=== PATIENT | male | born 1965 | race Caucasian/White ===

== ENCOUNTER 2018-11-17 18:57 | Inpatient (IN) ==
[2018-11-17] MEDS ORDERED: Isovue-370 500 ML BOTTLE IVP ONE (19:26)
--- NOTE | 2018-11-17 19:26 | Emergency Department Note ---
Disposition Clinical Impression: Hemoptysis Lung cancer Qualifiers: Laterality: right Lung location: upper lobe of lung Qualified Code(s): C34.11 - Malignant neoplasm of upper lobe, right bronchus or lung Pneumonia Qualifiers: Pneumonia type: due to unspecified organism Laterality: right Lung location: unspecified part of lung Qualified Code(s): J18.9 - Pneumonia, unspecified organism Disposition: Admitted As Inpatient Condition: Fair Referrals: Viral Hoffman DO [Primary Care Provider] - Forms: ED Satisfaction Letter Time of Disposition: 22:05 General Adult HPI - General Chief complaint: ED Shortness of Breath/Dyspnea Stated complaint: coughing up blood CA PT Time Seen by Provider: 11/17/18 19:10 Nursing Notes Reviewed: Yes Vital Signs Reviewed: Yes (elevated temp 100.2F, tachycardic) - History of Present Illness HPI Narrative: Mr. Carmona is a 53 year old male with history of squamous cell lung cancer of RUL dx 01/2016 and currently on chemotherpay with [facility] on Gemcitabine, COPD, former smoker, mairjuana smoker, migraines, and neuropathy who presents to the ED with complaint of coughing up bright red blood and clots that worsened since this morning. Patient reports that this has started about 2 days ago. Patient does reports some increased shortness of breath with these episodes as well as some lightheadedness. Reports in last few days had a blood transfusion for anemia, Hb 7.1 11/05/15 and transfused 2 Units pRBC. Fever to 103.8 last evening. Patient does report chills, sweats, and chest pain worse on the right side, but this is not new over the last few days and has been ongoing for several months or more. Is using marijuana for nausea. Reports not on blood thinners. Denies reported headaches, changes in vision or hearing, vomiting, abdominal pain, changes in bowels or bladder, blood in urine, blood in stools, weakness, new loss of sensation, or rash. Pain Scale: 8 - Related Data Home Medications Medication Instructions Recorded Confirmed Albuterol Sulfate [Proair 90 mcg IH BID PRN 05/14/16 11/04/18 Respiclick] Fluticasone/Vilanterol [Breo 1 each IH DAILY 09/10/18 11/04/18 Ellipta 100-25 Mcg INH] Fluticasone/Umeclidin/Vilanter 1 each IH DAILY 11/17/18 11/17/18 [Trelegy Ellipta 100-62.5-25] Previous Rx's Medication Instructions Recorded Lidocaine/Prilocaine [Emla] 1 appl TP DAILY #30 gm 01/21/18 Promethazine [Phenergan] 25 mg PO Q6HR PRN #30 tablet 01/21/18 LORazepam [Ativan] 0.5 mg PO BID PRN 30 Days #60 07/12/18 tablet Omeprazole [PriLOSEC] 40 mg PO DAILY #30 cap 08/09/18 Gabapentin [Neurontin] 800 mg PO TID #90 tablet 09/10/18 Mirtazapine [Remeron] 30 mg PO HS 30 Days #30 tablet 09/10/18 Citalopram [CeleXA] 10 mg PO DAILY #30 tablet 10/21/18 Morphine Sulfate SR (12 HR) [MS 1 tab PO Q12HR 30 Days #60 tab 10/28/18 Contin] OxyCODONE/APAP 5/325 [Percocet 1 - 2 tab PO Q6H PRN 30 Days #180 10/28/18 5/325 MG] tablet Allergies Allergy/AdvReac Type Severity Reaction Status Date / Time No Known Allergies Allergy Verified 11/17/18 18:59 Review of Systems: As Per HPI Past Medical History - Past Medical History Source: patient, old records reviewed Medical history: Reports: cancer (small cell lung cancer), COPD, migraine, other Surgical history: Reports: orthopedic, other, other Psychiatric history: Reports: no psych history - Social History Smoking Status: Former smoker Smokeless Tobacco Status: No Alcohol use: Reports: none Drug use: Reports: none Physical Exam - General General appearance: alert, in no apparent distress, cachectic, other (pale appearance) - Head Head exam: atraumatic, normocephalic, normal inspection - Eye Eye exam: Present: normal appearance - ENT ENT exam: normal exam, normal oropharynx, mucous membranes moist, other (lips with multiple red macules) - Neck Neck exam: Present: normal inspection, full ROM, trachea midline. Absent: tenderness, lymphadenopathy - Chest Chest inspection: Present: normal inspection, symmetric chest wall rise, other (port left upper chest) - Respiratory Respiratory exam: Present: normal lung sounds bilaterally. Absent: respiratory distress, wheezes, accessory muscle use - Cardiovascular Cardiovascular exam: Present: normal rhythm, tachycardia, normal heart sounds - Abdominal Exam Abdominal exam: Present: soft, Non-Tender, normal bowel sounds. Absent: guarding, rigidity - Extremities Exam Extremities exam: Present: normal inspection, full ROM, normal capillary refill. Absent: tenderness, pedal edema - Back Exam Back exam: Present: normal inspection, full ROM. Absent: tenderness, CVA tenderness (R), CVA tenderness (L) - Neurological Exam Neurological exam: Present: alert, oriented X3, normal gait, reflexes normal - Psychiatric Psychiatric exam: Present: normal affect, normal mood - Skin Skin exam: Present: warm, dry, intact, normal color. Absent: rash, diaphoresis, erythema Course Vital Signs Temperature 100.2 F H 11/17/18 18:59 Pulse Rate 108 11/17/18 18:59 Respiratory Rate 22 11/17/18 18:59 Blood Pressure 106/66 11/17/18 18:59 O2 Sat by Pulse Oximetry 91 11/17/18 18:59 Temperature 100.2 F H 11/17/18 19:22 Pulse Rate 94 11/17/18 20:51 Respiratory Rate 18 11/17/18 20:51 Blood Pressure 98/66 11/17/18 20:51 O2 Sat by Pulse Oximetry 89 11/17/18 20:51 Oxygen Delivery Oxygen Delivery Room Air Medical Decision Making - [facility] Narrative Medical decision making narrative: 53 year old male with known small cell lung cancer on chemotherapy with 3 day history of hemoptysis and worse over last 24 hours with some increased shortness of breath and lightheadedness and no constitutional symptoms, but has elevated temp of 100.2F and tachycardic on arrival. Ddx including but not limited to erosion secondary to lung cancer, pneumonia,PE, copd exacerbation. Will obtain CTA of chest for evaluation, last Cr completed 11/11/18 and was normal, contacted radiology okay to get CT at this time. Will also order additional labs including blood cultures and lactic acid for consideration of possible early forming sepsis given patient is immunocompomised on chemotherapy. Labs returned back without leukocytosis, essentially normal platelets, mildly low sodium and potassium, and normal urine. Blood cultures pending. Due to fevers of unknown source in imunocompromised patient, will start vancomycin and zosyn. Admit for observation and additional workup. Discussed with patient who is reluctant to be admitted. Requesting some of his home pain medications, confirmed in outpatient records from cancer center. Ordered 2 tablets 5/325 percocet. Repaged admitter and radiology 21:15p. CTA revealed increasing cavitation and/or necross in the opacified area of the right hemithorax and increaseing interstital prominence and multifocal airspace disease in periphery of right lung concerning for pnuemonia or lymphangitc s pread. Spoke with hospitalist 21:35pm, recommend contact Oncology and page back to discuss case further. Spoke with Oncology 22:00pm who recommended admission for pneumonia and treatment for and observation. Spoke with Hospitalist again 22:04, admit, start some fluids. 1.5L fluids ordered. - Medical Records Medical records reviewed: Yes I reviewed the patient's medical records. [email or web address]. - Lab Data Lab results reviewed: Yes I reviewed the patient's lab results. Lab results narrative: Hb low at 7.8 but acceptable, lactic acid normal, WBC 7.1, urine normal, sodium 128, platelets 191. Laboratory Last Values WBC 7.1 K/mcL (4.3-11.1) D 11/17/18 19:31 RBC 3.04 M/mcL (4.19-5.50) L 11/17/18 19:31 Hgb 7.8 g/dL (12.9-16.9) L 11/17/18 19:31 Hct 25.1 % (37.5-50.1) L 11/17/18 19:31 MCV 82.6 fL (83.0-100.0) L 11/17/18 19:31 MCH 25.7 pg (28.0-33.3) L 11/17/18 19:31 MCHC 31.1 g/dL (31.6-35.5) L 11/17/18 19:31 RDW 18.3 % (11.5-14.5) H 11/17/18 19:31 Plt Count 191 K/mcL (140-400) D 11/17/18 19:31 MPV 9.7 fL (9.4-12.4) 11/17/18 19:31 Sodium 128 mEq/L (136-145) L 11/17/18 19:31 Potassium 3.3 mEq/L (3.5-5.1) L 11/17/18 19:31 Chloride 93 mEq/L (98-107) L 11/17/18 19:31 Carbon Dioxide 25 mEq/L (23-29) 11/17/18 19:31 BUN 8 mg/dL (6-20) 11/17/18 19:31 0.83 mg/dL (0.70-1.30) 11/17/18 19:31 Est GFR ( Amer) > 60 (> 60) 11/17/18 19:31 Est GFR (Non-Af Amer) > 60 (> 60) 11/17/18 19:31 10 (6-26) 11/17/18 19:31 Glucose 118 mg/dL (70-105) H 11/17/18 19:31 265 (280-300) L 11/17/18 19:31 Lactic Acid 0.9 mmol/L (0.5-2.2) 11/17/18 19:31 Calcium 8.9 mg/dL (8.6-10.3) 11/17/18 19:31 Yellow (Yellow) 11/17/18 20:13 Clear (Clear) 11/17/18 20:13 7.0 pH Units (5.0-8.0) 11/17/18 20:13 Ur Specific [place] < 1.005 (1.010-1.025) L 11/17/18 20:13 Negative mg/dL (Neg-Trace) 11/17/18 20:13 Normal mg/dL (Normal) 11/17/18 20:13 Negative mg/dL (Negative) 11/17/18 20:13 Trace (Negative) H 11/17/18 20:13 Negative (Negative) 11/17/18 20:13 Negative (Negative) 11/17/18 20:13 Normal mg/dL (Normal) 11/17/18 20:13 Ur Leukocyte Esterase Negative (Negative) 11/17/18 20:13 Result diagrams: 11/17/18 19:31 11/17/18 19:31 Lab Results 11/17/18 11/17/18 11/17/18 Range/Units 19:31 19:31 19:31 WBC 7.1 D (4.3-11.1) K/mcL RBC 3.04 L (4.19-5.50) M/mcL Hgb 7.8 L (12.9-16.9) g/dL Hct 25.1 L (37.5-50.1) % MCV 82.6 L (83.0-100.0) fL MCH 25.7 L (28.0-33.3) pg MCHC 31.1 L (31.6-35.5) g/dL RDW 18.3 H (11.5-14.5) % Plt Count 191 D (140-400) K/mcL MPV 9.7 (9.4-12.4) fL Sodium 128 L (136-145) mEq/L Potassium 3.3 L (3.5-5.1) mEq/L Chloride 93 L (98-107) mEq/L Carbon Dioxide 25 (23-29) mEq/L BUN 8 (6-20) mg/dL Creatinine 0.83 (0.70-1.30) mg/dL Est GFR ( Amer) > 60 (> 60) Est GFR (Non-Af Amer) > 60 (> 60) BUN/Creatinine Ratio 10 (6-26) Glucose 118 H (70-105) mg/dL Calculated Osmolality 265 L (280-300) Lactic Acid 0.9 (0.5-2.2) mmol/L Calcium 8.9 (8.6-10.3) mg/dL Urine Color (Yellow) Urine Clarity (Clear) Urine pH (5.0-8.0) pH Units Ur Specific [place] (1.010-1.025) Urine Protein (Neg-Trace) mg/dL Urine Glucose (UA) (Normal) mg/dL Urine Ketones (Negative) mg/dL Urine Blood (Negative) Urine Nitrite (Negative) Urine Bilirubin (Negative) Urine Urobilinogen (Normal) mg/dL Ur Leukocyte Esterase (Negative) Ur Squamous Epith Cells (None-Few) per lpf Urine Bacteria (None-Few) per hpf Blood Type Antibody Screen 11/17/18 11/17/18 Range/Units 20:04 20:13 WBC (4.3-11.1) K/mcL RBC (4.19-5.50) M/mcL Hgb (12.9-16.9) g/dL Hct (37.5-50.1) % MCV (83.0-100.0) fL MCH (28.0-33.3) pg MCHC (31.6-35.5) g/dL RDW (11.5-14.5) % Plt Count (140-400) K/mcL MPV (9.4-12.4) fL Sodium (136-145) mEq/L Potassium (3.5-5.1) mEq/L Chloride (98-107) mEq/L Carbon Dioxide (23-29) mEq/L BUN (6-20) mg/dL Creatinine (0.70-1.30) mg/dL Est GFR ( Amer) (> 60) Est GFR (Non-Af Amer) (> 60) BUN/Creatinine Ratio (6-26) Glucose (70-105) mg/dL Calculated Osmolality (280-300) Lactic Acid (0.5-2.2) mmol/L Calcium (8.6-10.3) mg/dL Urine Color Yellow (Yellow) Urine Clarity Clear (Clear) Urine pH 7.0 (5.0-8.0) pH Units Ur Specific [place] < 1.005 L (1.010-1.025) Urine Protein Negative (Neg-Trace) mg/dL Urine Glucose (UA) Normal (Normal) mg/dL Urine Ketones Negative (Negative) mg/dL Urine Blood Trace H (Negative) Urine Nitrite Negative (Negative) Urine Bilirubin Negative (Negative) Urine Urobilinogen Normal (Normal) mg/dL Ur Leukocyte Esterase Negative (Negative) Ur Squamous Epith Cells Few (None-Few) per lpf Urine Bacteria None Seen (None-Few) per hpf Blood Type AB NEGATIVE Antibody Screen NEGATIVE - Radiology Data Radiology results reviewed: Yes I reviewed the patient's radiology results. Chest CTA 11/17/18 19:26 IMPRESSION: There no findings diagnostic of pulmonary embolus There is a large amount of abnormal opacification in the right hemithorax extending from the apex to the infrahilar region. There is increasing cavitation and/or necrosis in this opacification and there is also increasing interstitial prominence and multifocal airspace disease in the periphery of the right lung. This is nonspecific and may represent pneumonia or even lymphangitic tumor spread. Multifocal ground-glass attenuation in the left hemithorax is improved. D/ / Sarkis Bradford / Sarkis Bradford Interpreting Provider: Sarkis Bradford
[2018-11-17 19:43] LABS: Hematocrit 25.1 % (37.5-50.1); Hemoglobin 7.8 g/dL (12.9-16.9); Mean Corpuscular HGB Conc 31.1 g/dL (31.6-35.5); Mean Corpuscular Hemoglobin 25.7 pg (28.0-33.3); Mean Corpuscular Volume 82.6 fL (83.0-100.0); Mean Platelet Volume 9.7 fL (9.4-12.4); Platelet Count 191 K/mcL (140-400); Red Blood Count 3.04 M/mcL (4.19-5.50); Red Cell Distribution Width 18.3 % (11.5-14.5)
--- NOTE | 2018-11-17 19:49 | Emergency Department Note ---
Disposition Clinical Impression: Hemoptysis Lung cancer Qualifiers: Laterality: right Lung location: upper lobe of lung Qualified Code(s): C34.11 - Malignant neoplasm of upper lobe, right bronchus or lung Pneumonia Qualifiers: Pneumonia type: due to unspecified organism Laterality: right Lung location: unspecified part of lung Qualified Code(s): J18.9 - Pneumonia, unspecified organism Anemia Qualifiers: Anemia type: unspecified type Qualified Code(s): D64.9 - Anemia, unspecified Disposition: Admitted As Inpatient Condition: Fair Time of Disposition: 00:00 (see actual ED d/c time) General Adult HPI - General Chief complaint: ED Shortness of Breath/Dyspnea Stated complaint: coughing up blood CA PT Time Seen by Provider: 11/17/18 19:10 Source: patient Limitations: no limitations - History of Present Illness Pain Scale: 8 - Related Data Home Medications Medication Instructions Recorded Confirmed Albuterol Sulfate [Proair 90 mcg IH BID PRN 05/14/16 11/04/18 Respiclick] Fluticasone/Vilanterol [Breo 1 each IH DAILY 09/10/18 11/17/18 Ellipta 100-25 Mcg INH] Fluticasone/Umeclidin/Vilanter 1 each IH DAILY 11/17/18 11/17/18 [Trelegy Ellipta 100-62.5-25] Previous Rx's Medication Instructions Recorded Lidocaine/Prilocaine [Emla] 1 appl TP DAILY #30 gm 01/21/18 Promethazine [Phenergan] 25 mg PO Q6HR PRN #30 tablet 01/21/18 LORazepam [Ativan] 0.5 mg PO BID PRN 30 Days #60 07/12/18 tablet Omeprazole [PriLOSEC] 40 mg PO DAILY #30 cap 08/09/18 Gabapentin [Neurontin] 800 mg PO TID #90 tablet 09/10/18 Mirtazapine [Remeron] 30 mg PO HS 30 Days #30 tablet 09/10/18 Citalopram [CeleXA] 10 mg PO DAILY #30 tablet 10/21/18 Morphine Sulfate SR (12 HR) [MS 1 tab PO Q12HR 30 Days #60 tab 10/28/18 Contin] OxyCODONE/APAP 5/325 [Percocet 1 - 2 tab PO Q6H PRN 30 Days #180 10/28/18 5/325 MG] tablet Allergies Allergy/AdvReac Type Severity Reaction Status Date / Time No Known Allergies Allergy Verified 11/17/18 18:59 Past Medical History - Past Medical History Medical history: Reports: cancer (small cell lung cancer), COPD, migraine, other Surgical history: Reports: orthopedic, other, other Psychiatric history: Reports: no psych history - Social History Smoking Status: Former smoker Smokeless Tobacco Status: No Alcohol use: Reports: none Drug use: Reports: marijuana Physical Exam - General Limitations: no limitations General appearance: alert, in no apparent distress, cachectic Course Vital Signs Temperature 100.2 F H 11/17/18 18:59 Pulse Rate 108 11/17/18 18:59 Respiratory Rate 22 11/17/18 18:59 Blood Pressure 106/66 11/17/18 18:59 O2 Sat by Pulse Oximetry 91 11/17/18 18:59 Temperature 93 F L 11/18/18 09:00 Pulse Rate 88 11/18/18 09:00 Respiratory Rate 18 11/18/18 09:00 Blood Pressure 101/69 11/18/18 09:00 O2 Sat by Pulse Oximetry 93 11/18/18 09:00 Oxygen Delivery Oxygen Delivery Nasal Cannula Medical Decision Making - Medical Records Medical records reviewed: Yes I reviewed the patient's medical records. - Lab Data Lab results reviewed: Yes I reviewed the patient's lab results. Result diagrams: 11/18/18 01:24 11/17/18 19:31 Lab Results 11/17/18 11/17/18 11/17/18 Range/Units 19:31 19:31 19:31 WBC 7.1 D (4.3-11.1) K/mcL RBC 3.04 L (4.19-5.50) M/mcL Hgb 7.8 L (12.9-16.9) g/dL Hct 25.1 L (37.5-50.1) % MCV 82.6 L (83.0-100.0) fL MCH 25.7 L (28.0-33.3) pg MCHC 31.1 L (31.6-35.5) g/dL RDW 18.3 H (11.5-14.5) % Plt Count 191 D (140-400) K/mcL MPV 9.7 (9.4-12.4) fL Sodium 128 L (136-145) mEq/L Potassium 3.3 L (3.5-5.1) mEq/L Chloride 93 L (98-107) mEq/L Carbon Dioxide 25 (23-29) mEq/L BUN 8 (6-20) mg/dL Creatinine 0.83 (0.70-1.30) mg/dL Est GFR ( Amer) > 60 (> 60) Est GFR (Non-Af Amer) > 60 (> 60) BUN/Creatinine Ratio 10 (6-26) Glucose 118 H (70-105) mg/dL POC Glucose (70-99) mg/dL Calculated Osmolality 265 L (280-300) Lactic Acid 0.9 (0.5-2.2) mmol/L Calcium 8.9 (8.6-10.3) mg/dL Urine Color (Yellow) Urine Clarity (Clear) Urine pH (5.0-8.0) pH Units Ur Specific [place] (1.010-1.025) Urine Protein (Neg-Trace) mg/dL Urine Glucose (UA) (Normal) mg/dL Urine Ketones (Negative) mg/dL Urine Blood (Negative) Urine Nitrite (Negative) Urine Bilirubin (Negative) Urine Urobilinogen (Normal) mg/dL Ur Leukocyte Esterase (Negative) Ur Squamous Epith Cells (None-Few) per lpf Urine Bacteria (None-Few) per hpf Urine Osmolality (300-1090) mOsm/kg Urine Creatinine mg/dL Urine Sodium mEq/L Blood Type Antibody Screen Crossmatch 11/17/18 11/17/18 11/17/18 Range/Units 20:04 20:13 20:13 WBC (4.3-11.1) K/mcL RBC (4.19-5.50) M/mcL Hgb (12.9-16.9) g/dL Hct (37.5-50.1) % MCV (83.0-100.0) fL MCH (28.0-33.3) pg MCHC (31.6-35.5) g/dL RDW (11.5-14.5) % Plt Count (140-400) K/mcL MPV (9.4-12.4) fL Sodium (136-145) mEq/L Potassium (3.5-5.1) mEq/L Chloride (98-107) mEq/L Carbon Dioxide (23-29) mEq/L BUN (6-20) mg/dL Creatinine (0.70-1.30) mg/dL Est GFR ( Amer) (> 60) Est GFR (Non-Af Amer) (> 60) BUN/Creatinine Ratio (6-26) Glucose (70-105) mg/dL POC Glucose (70-99) mg/dL Calculated Osmolality (280-300) Lactic Acid (0.5-2.2) mmol/L Calcium (8.6-10.3) mg/dL Urine Color Yellow (Yellow) Urine Clarity Clear (Clear) Urine pH 7.0 (5.0-8.0) pH Units Ur Specific [place] < 1.005 L (1.010-1.025) Urine Protein Negative (Neg-Trace) mg/dL Urine Glucose (UA) Normal (Normal) mg/dL Urine Ketones Negative (Negative) mg/dL Urine Blood Trace H (Negative) Urine Nitrite Negative (Negative) Urine Bilirubin Negative (Negative) Urine Urobilinogen Normal (Normal) mg/dL Ur Leukocyte Esterase Negative (Negative) Ur Squamous Epith Cells Few (None-Few) per lpf Urine Bacteria None Seen (None-Few) per hpf Urine Osmolality (300-1090) mOsm/kg Urine Creatinine 19 mg/dL Urine Sodium 10.4 mEq/L Blood Type AB NEGATIVE Antibody Screen NEGATIVE Crossmatch See Detail 11/17/18 11/17/18 11/18/18 Range/Units 20:13 23:52 01:24 WBC (4.3-11.1) K/mcL RBC (4.19-5.50) M/mcL Hgb 7.3 L (12.9-16.9) g/dL Hct 24.3 L (37.5-50.1) % MCV (83.0-100.0) fL MCH (28.0-33.3) pg MCHC (31.6-35.5) g/dL RDW (11.5-14.5) % Plt Count (140-400) K/mcL MPV (9.4-12.4) fL Sodium (136-145) mEq/L Potassium (3.5-5.1) mEq/L Chloride (98-107) mEq/L Carbon Dioxide (23-29) mEq/L BUN (6-20) mg/dL Creatinine (0.70-1.30) mg/dL Est GFR ( Amer) (> 60) Est GFR (Non-Af Amer) (> 60) BUN/Creatinine Ratio (6-26) Glucose (70-105) mg/dL POC Glucose 115 H (70-99) mg/dL Calculated Osmolality (280-300) Lactic Acid (0.5-2.2) mmol/L Calcium (8.6-10.3) mg/dL Urine Color (Yellow) Urine Clarity (Clear) Urine pH (5.0-8.0) pH Units Ur Specific [place] (1.010-1.025) Urine Protein (Neg-Trace) mg/dL Urine Glucose (UA) (Normal) mg/dL Urine Ketones (Negative) mg/dL Urine Blood (Negative) Urine Nitrite (Negative) Urine Bilirubin (Negative) Urine Urobilinogen (Normal) mg/dL Ur Leukocyte Esterase (Negative) Ur Squamous Epith Cells (None-Few) per lpf Urine Bacteria (None-Few) per hpf Urine Osmolality 57 L (300-1090) mOsm/kg Urine Creatinine mg/dL Urine Sodium mEq/L Blood Type Antibody Screen Crossmatch - Radiology Data Radiology results reviewed: Yes I reviewed the patient's radiology results. Attestation Statement - Attestation Attestation: I examined this patient and my medical decision-making was reviewed with the ACTIVATED SLUDGE ATTENDANT/PA/Advanced Practice Nurse/Resident Physician. I agree with the documented findings, disposition and treatment plan as described except to the extent set forth below. The patient is on chemotherapy for lung cancer and was last treated 2 weeks ago and is here with his fiancee as well as his son and [id number] and according to the [id number] he is also had blood in the stool. He said he has only had several days of hemoptysis although the daughter said he has been spitting up blood for several weeks. Either way the patient is being evaluated for possible sepsis because he did have a temperature 103.8 degrees last night and in addition he is also going to have lactate level, blood cultures, urine culture, chest CT with contrast looking for PE versus pneumonia or other source of his hemoptysis. He has not coughed up any blood since he has been here. He will have a type and screen added to his labs based on this other information about blood loss and he is also recently transfused. He is speaking with me in the room and breathing comfortably and in no distress at this time. 1946
[2018-11-17 20:02] LABS: BUN/Creatinine Ratio 10 (6-26); Blood Urea Nitrogen 8 mg/dL (6-20); Calcium 8.9 mg/dL (8.6-10.3); Carbon Dioxide 25 mEq/L (23-29); Chloride 93 mEq/L (98-107); Glucose 118 mg/dL (70-105); Osmolality,Calculated 265 (280-300); Potassium 3.3 mEq/L (3.5-5.1); Sodium 128 mEq/L (136-145); eGFR For Non-African Americans > 60 (> 60)
[2018-11-17 20:30] LABS: Bilirubin,Urine Negative (Negative); Blood,Urine Trace (Negative); Clarity,Urine Clear (Clear); Color,Urine Yellow (Yellow); Glucose,Urine (UA) Normal (Normal); Ketones,Urine Negative (Negative); Leukocyte Esterase,Urine Negative (Negative); Nitrite,Urine Negative (Negative); Protein,Urine Negative (Neg-Trace); Specific Gravity,Urine < 1.005 (1.010-1.025); Urobilinogen,Urine Normal (Normal)
[2018-11-17 20:47] LABS: Bacteria,Urine None Seen per hpf (None-Few); Squamous Epithelial Cell,Urine Few per lpf (None-Few)
[2018-11-17] MEDS ORDERED: Piperacillin/Tazobactam 3.375 GM in 0.9 % Sodium Chloride Mini Bag 100 ML IVPB ONE (21:00)
[2018-11-17] MEDS ORDERED: *HR* OxyCODONE/APAP 5/325 TABLET PO ONE (21:05)
[2018-11-17] MEDS ORDERED: 0.9 % Sodium Chloride 1,000 ML IVC ONE (22:05)
[2018-11-17] MEDS ORDERED: 0.9 % Sodium Chloride 500 ML IVC ONE (22:06)
--- NOTE | 2018-11-17 23:00 | Internal Med History&Physical ---
<Hermilo Ennis S - Last Filed: 11/18/18 01:42> Date of Encounter: 11/18/18 Time of Encounter: 23:55 Internal Medicine - H&P: HPI Chief complaint: couhging up blood Admitted From: Home Plans for Post Hospital Care: Home History of present illness: Mr. Carmona is a 53 year old male with a past medical history of squamous cell lung cancer dx 01/2016 and currently on chemotherpay with [facility] on Gemcitabine, COPD not on home oxygen, former smoker, and peripheral neuropathy. He presented to the ER overnight with the cheif complaint of coughing up bright red blood and clots that worsened since this morning, he has been having hemoptysis for 2-3 days. He denies anticoagulation use. Started out brown in color and increased to ben blood with nose bleeding. Patient does reports some increased shortness of breath. He also reports increasing weakness and fevers/chills. Reports in last few days had a blood transfusion for anemia, Hb 7.1 11/05/15 and transfused 2 Units pRBC. Fever to 103.8 last evening as reported by the patient. Denies reported headaches, changes in vision or hearing, vomiting, abdominal pain, changes in bowels or bladder, blood in urine, blood in stools, new loss of sensation, or rash. He denies active chest pain but does have some chest pain with coughing episodes. In the ER he was found to have an increasing cavitary mass on CT scan and concerns for pneumonia. Hemoglobin at 7.8. He was given vancomycin and zosyn. Blood cx were sent. After speaking to pulmonolgist curbing stonecutter, he will be admitted to ICU for further workup and evaluation. Past Med Surg Social Fam HX - Past Medical History Medical history: cancer (small cell lung cancer), COPD, migraine, other Additional medical history: LUNG CA, chronic pain. ETOH ONCE A WEEK 6 BEERS ON AVERAGE, last time 06/2018 Psychiatric history: no psych history - Past Surgical History Surgical History: orthopedic, other, other Additional surgical history: double -. 04/02/16 LEFT ADRENAL GLAND BX @[facility] - Social History Smoking Status: Former smoker Smokeless Tobacco Status: No Alcohol use: none Drug use: marijuana - Family History Mother Adopted: No Race: Hx Family Cardiac Disorders: Yes Hx Family Cancer: Yes Father Adopted: No Race: Hx Family Cardiac Disorders: Yes Internal Medicine - H&P: Meds Albuterol Sulfate [Proair Respiclick] 90 mcg IH BID PRN 05/14/16 [History] Lidocaine/Prilocaine [Emla] 1 appl TP DAILY #30 gm 01/21/18 [Rx] Promethazine [Phenergan] 25 mg PO Q6HR PRN #30 tablet 01/21/18 [Rx] LORazepam [Ativan] 0.5 mg PO BID PRN 30 Days #60 tablet 07/12/18 [Rx] Omeprazole [PriLOSEC] 40 mg PO DAILY #30 cap 08/09/18 [Rx] Fluticasone/Vilanterol [Breo Ellipta 100-25 Mcg INH] 1 each IH DAILY 09/10/18 [History] Gabapentin [Neurontin] 800 mg PO TID #90 tablet 09/10/18 [Rx] Mirtazapine [Remeron] 30 mg PO HS 30 Days #30 tablet 09/10/18 [Rx] Citalopram [CeleXA] 10 mg PO DAILY #30 tablet 10/21/18 [Rx] Morphine Sulfate SR (12 HR) [MS Contin] 1 tab PO Q12HR 30 Days #60 tab 10/28/18 [Rx] OxyCODONE/APAP 5/325 [Percocet 5/325 MG] 1 - 2 tab PO Q6H PRN 30 Days #180 tablet 10/28/18 [Rx] Fluticasone/Umeclidin/Vilanter [Trelegy Ellipta 100-62.5-25] 1 each IH DAILY 11/17/18 [History] Allergy/AdvReac Type Severity Reaction Status Date / Time No Known Allergies Allergy Verified 11/17/18 18:59 All Systems PM: A 10-system review of systems was performed and is negative for pertinent findings except as documented above in the HPI. - Constitutional Constitutional: anorexia, chills, fever(s) - EENT Eyes: no blurry vision, no change in vision - Cardiovascular Cardiovascular ROS IM: dyspnea, dyspnea on exertion, no chest pain - Respiratory Respiratory: cough, dyspnea, hemoptysis, dyspnea on exertion, pain on inspiration, chest congestion, excessive phlegm production, change in phlegm color - Gastrointestinal Gastrointestinal: nausea, no abdominal pain, no diarrhea, no vomiting - Genitourinary Genitourinary ROS male: no dysuria, no hematuria - Musculoskeletal Musculoskeletal ROS IM: back pain, no stiffness, no tingling - Integumentary Integumentary IM: rash, no skin ulcer - Neurological Neurological ROS: weakness, no frequent falls, no headache(s), no numbness, no tingling - Psychiatric Psychiatric: anxiety, depression - Endocrine Endocrine IM: no fatigue - Hematologic/Lymphatic Hematologic/Lymphatic: no easy bleeding, no easy bruising - Constitutional Vitals: Temp Pulse Resp BP Pulse Ox 100.7 F H 94 16 103/67 89 11/17/18 22:53 11/17/18 20:51 11/17/18 22:53 11/17/18 22:53 11/17/18 20:51 General appearance: Present: cooperative, mild distress, A&O X 3, no acute distress, answers questions appropriately Exam: x - Head Head exam: Present: atraumatic, normocephalic - Eye Eye exam: Present: EOMI, sclera anicteric - ENT ENT exam: Present: mucous membranes dry Additional comments: dried blood on lips and oral cavity - Neck Neck exam general surgery: Present: supple, trachea midline - Respiratory Respiratory exam: Present: decreased breath sounds, prolonged expiratory phase, respiratory distress (mild respiratory distress), rhonchi, wheezes - Cardiovascular Cardiovascular exam: Present: +S1, +S2, tachycardia. Absent: JVD - GI/Abdominal GI/Abdominal exam: Present: soft, no peritoneal signs. Absent: firm, rebound, rigid, tenderness - Extremities Exam Extremities exam: Present: normal capillary refill, normal inspection, warm, radial pulses palpable and symmetrical. Absent: pedal edema, tenderness - Back Exam Back exam: Present: normal inspection. Absent: rash noted, tenderness, vertebral tenderness - Neurological Exam Neurological exam: Present: alert, CN II-XII intact, oriented X3, no focal deficits, strengths equal and symetr throughout - Expanded Neurological Exam Neuro motor strength exam: LUE: 5, RUE: 5, LLE: 5, RLE: 5 Coma Scale Eye Opening: Spontaneous Coma Scale Motor Response: Obeys Commands Coma Scale Verbal Response: Oriented Coma Scale Total: 15 - Psychiatric Psychiatric exam: Present: anxious - Skin Skin exam: Present: dry, intact, warm Internal Med - H&P Results - Labs CBC & Chem 7: 05/23/19 01:24 11/17/18 19:31 Labs: Short CBC 11/17/18 Range/Units 19:31 WBC 7.1 D (4.3-11.1) K/mcL Hgb 7.8 L (12.9-16.9) g/dL Hct 25.1 L (37.5-50.1) % Plt Count 191 D (140-400) K/mcL BMP 11/17/18 19:31 Sodium 128 L Potassium 3.3 L Chloride 93 L Carbon Dioxide 25 BUN 8 Creatinine 0.83 Glucose 118 H Calcium 8.9 Urine 11/17/18 Range/Units 20:13 Urine Color Yellow (Yellow) Urine Clarity Clear (Clear) Urine pH 7.0 (5.0-8.0) pH Units Ur Specific [place] < 1.005 L (1.010-1.025) Urine Protein Negative (Neg-Trace) mg/dL Urine Glucose (UA) Normal (Normal) mg/dL - Impressions ITS Impressions Chest CTA 11/17/18 19:26 IMPRESSION: There no findings diagnostic of pulmonary embolus There is a large amount of abnormal opacification in the right hemithorax extending from the apex to the infrahilar region. There is increasing cavitation and/or necrosis in this opacification and there is also increasing interstitial prominence and multifocal airspace disease in the periphery of the right lung. This is nonspecific and may represent pneumonia or even lymphangitic tumor spread. Multifocal ground-glass attenuation in the left hemithorax is improved. D/ / Sarkis Bradford / Sarkis Bradford Interpreting Provider: Sarkis Bradford - Assessment and Plan (1) Pneumonia Current Visit: Yes Status: Acute Assessment and plan: Pt with increasing SOB, VQ mismatch, sputum production Currently doesn't meet SIRS criteria Also reports hemoptysis, about 300 cc in the last 24 hrs as detailed below Currently the pt is hemodynamially stable, with VSS CT chest showed: - negative for PE - large amount of abnormal opacification in the right hemithorax extending from the apex to the infrahilar region. - there is increasing cavitation and/or necrosis in this opacification - increasing interstitial prominence and multifocal airspace disease in the periphery of the right lung. this is nonspecific and may represent pneumonia or even lymphangitic tumor spread. - Multifocal ground-glass attenuation in the left hemithorax is improved Plan: - 100cc/hr 0.9% NS - blood cx pending - urine antigens pending - sputum cx pending - duonebs jeyson - continue vancomycin and zosyn day 2 - pulmonology consulted did speak to Dr Saucedo who wishes for him to be placed in the ICU - pt to be moved to ICU in the setting of concerning hemoptysis - FEN: NPO - DVT prophylaxis: scd - dispo: ICU admission, IV abx, pulmonolog to see Qualifiers: Pneumonia type: due to unspecified organism Laterality: right Lung location: unspecified part of lung Qualified Code(s): J18.9 - Pneumonia, uns pecified organism (2) Hemoptysis Current Visit: Yes Status: Acute Assessment and plan: Pt reports about 300cc of gross blood UpToDate reports hemoptysis to be life-threatening when there has been approx imately 250 mL of blood expectorated in a 24-hour period or bleeding at a rate >100 mL/hour. Spoke with Dr Saucedo who wishes for the pt to be moved to the ICU. He is to be typed and screened. Will transfuse for hemoglobin <7. H&H q6hr. (3) Lung cancer Current Visit: Yes Status: Acute Assessment and plan: Pt has hx of lung cancer, was in remission in 2016 and now has active disease. Small cell lung cancer. CT from September 2018: - Gross interval progression cavitary right upper lobe mass into the right side of the mediastinum and right hilum resulting in occlusion of the bronchus to the right lower lobe and marked narrowing branches of the right pulmonary artery. - Progression of metastatic adenopathy. - Numerous new pulmonary nodules bilateral lungs, presumably metastasis, as well as new findings of interlobular thickening in the right lung suspicious for lymphangitic carcinomatosis Will consult heme-onc while the pt is here. Qualifiers: Laterality: right Lung location: upper lobe of lung Qualified Code(s): C34.11 - Malignant neoplasm of upper lobe, right bronchus or lung (4) DVT prophylaxis Current Visit: Yes Status: Acute Assessment and plan: scd (5) Anemia Current Visit: Yes Status: Acute Assessment and plan: Pt with hemoglobin of 7.8 on admission, baseline around 8-9. Was transfused 2 U November 11. Continue to trend hemoglobins. Pt typed/screened. Transfuse as needed. Qualifiers: Anemia type: unspecified type Qualified Code(s): D64.9 - Anemia, unspecified (6) Hypokalemia Current Visit: Yes Status: Acute Assessment and plan: potassium 3.3, replaced. (7) Acute respiratory failure Current Visit: Yes Status: Acute Assessment and plan: Increasing oxygen requirements, not on home oxygen. Requiring 2L NC. Qualifiers: Respiratory failure complication: unspecified whether with hypoxia or hypercapnia Qualified Code(s): J96.00 - Acute respiratory failure, unspecified whether with hypoxia or hypercapnia (8) Hyponatremia Current Visit: Yes Status: Acute Assessment and plan: Sodium 128 on admission. 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 Will check urine osmolalities and urine sodium. Fluid hydration as above. - Time Spent With Patient Total time spent is greater than 50% in coordination of care (as documented) at patient's floor/unit and/or counseling patient: Greater than 35 minutes <Jennifer Tsang - Last Filed: 11/18/18 05:09> Date of Encounter: 11/17/18 Internal Medicine - H&P: HPI History of present illness: Mr. Carmona is a 53 year old male All Systems PM: A 10-system review of systems was performed and is negative for pertinent findings except as documented above in the HPI. - Constitutional Vitals: Temp Pulse Resp BP Pulse Ox 97.6 F 73 22 90/65 97 11/18/18 04:00 11/18/18 04:00 11/18/18 04:00 11/18/18 04:00 11/18/18 04:00 Internal Med - H&P Results - Labs CBC & Chem 7: 11/18/18 01:24 11/17/18 19:31 Labs: Short CBC 11/17/18 11/18/18 Range/Units 19:31 01:24 WBC 7.1 D (4.3-11.1) K/mcL Hgb 7.8 L 7.3 L (12.9-16.9) g/dL Hct 25.1 L 24.3 L (37.5-50.1) % Plt Count 191 D (140-400) K/mcL BMP 05/22/19 19:31 Sodium 128 L Potassium 3.3 L Chloride 93 L Carbon Dioxide 25 BUN 8 Creatinine 0.83 Glucose 118 H Calcium 8.9 Urine 11/17/18 Range/Units 20:13 Urine Color Yellow (Yellow) Urine Clarity Clear (Clear) Urine pH 7.0 (5.0-8.0) pH Units Ur Specific [place] < 1.005 L (1.010-1.025) Urine Protein Negative (Neg-Trace) mg/dL Urine Glucose (UA) Normal (Normal) mg/dL - Impressions ITS Impressions Chest CTA 11/17/18 19:26 IMPRESSION: There no findings diagnostic of pulmonary embolus There is a large amount of abnormal opacification in the right hemithorax extending from the apex to the infrahilar region. There is increasing cavitation and/or necrosis in this opacification and there is also increasing interstitial prominence and multifocal airspace disease in the periphery of the right lung. This is nonspecific and may represent pneumonia or even lymphangitic tumor spread. Multifocal ground-glass attenuation in the left hemithorax is improved. D/ / Sarkis Bradford / Sarkis Bradford Interpreting Provider: Sarkis Bradford - Assessment and Plan (1) Hemoptysis Current Visit: Yes Status: Acute (2) Lung cancer Current Visit: Yes Status: Acute Qualifiers: Laterality: right Lung location: upper lobe of lung Qualified Code(s): C34.11 - Malignant neoplasm of upper lobe, right bronchus or lung (3) Pneumonia Current Visit: Yes Status: Acute Qualifiers: Pneumonia type: due to unspecified organism Laterality: right Lung location: unspecified part of lung Qualified Code(s): J18.9 - Pneumonia, unspecified organism (4) DVT prophylaxis Current Visit: Yes Status: Acute (5) Anemia Current Visit: Yes Status: Acute Qualifiers: Anemia type: unspecified type Qualified Code(s): D64.9 - Anemia, unspecified (6) Hypokalemia Current Visit: Yes Status: Acute (7) Acute respiratory failure Current Visit: Yes Status: Acute Qualifiers: Respiratory failure complication: unspecified whether with hypoxia or hypercapnia Qualified Code(s): J96.00 - Acute respiratory failure, unspecified whether with hypoxia or hypercapnia (8) Hyponatremia Current Visit: Yes Status: Acute - Time Spent With Patient Total time spent is greater than 50% in coordination of care (as documented) at patient's floor/unit and/or counseling patient: - Attending Attestation I performed a history and physical examination of the patient and discussed his management with the resident. I reviewed the resident's note and agree with the assessment and plan of care. In short patient is a 53-year-old male with a past medical history of squamous cell lung cancer diagnosed in 2016 currently on chemotherapy with Dr. Koehler who presented to the ED with worsening hemoptysis over the past 3 days. Patient was seen by his oncologist on the at which time was started on a new cycle of Gemcitabine. Patient was also noted to be a nemic at the time and received 2 units of packed red blood cells. Patient was to have his second cycle the following week but was found to be thrombocytopenic and therapy was deferred. Patient states over the past 3 days he has had cough productive initially of brownish sputum that is gotten more red and grossly ben earlier today. On arrival patient was found to have a hemoglobin of 7.8. Imaging with CT of the chest showed large amount of abnormal opacification in the right hemithorax extending from the apex to the infrahilar region with increasing cavitation and necrosis. Patient was started on broad-spectrum antibiotic coverage due to concern for underlying pneumonia. We will type and screen and transfuse as needed. Case discussed with Dr. Long and due to concern for massive hemoptysis recommended transfer to the ICU. On my assessment patient was otherwise hemodynamically stable. No reports of recent hemoptysis. We will continue fluids and antibiotics. Trend troponin. We will keep nothing by mouth.
[2018-11-17] MEDS ORDERED: Potassium Chloride 40 MEQ, Lidocaine 1% 2 ML in D5% in Water 500 ML IVPB ONE (23:02)
[2018-11-17] MEDS ORDERED: Ipratropium/Albuterol Neb 3 ML IH PRN (23:13)
[2018-11-17] MEDS ORDERED: 0.9 % Sodium Chloride 1,000 ML IVC SCH (23:15)
[2018-11-18 00:43] LABS: Sodium, Urine 10.4 mEq/L
[2018-11-18] MEDS ORDERED: *HR* OxyCODONE/APAP 5/325 TABLET PO PRN ×2 (00:45→09:41)
[2018-11-18] MEDS ORDERED: Mirtazapine 15 MG TABLET PO SCH ×2 (00:45→21:00)
[2018-11-18] MEDS ORDERED: Ipratropium/Albuterol Neb 3 ML IH PRN ×2 (00:46→09:41)
[2018-11-18] MEDS ORDERED: 0.9 % Sodium Chloride 1,000 ML IVC SCH ×2 (00:46→09:41)
[2018-11-18] MEDS ORDERED: Azithromycin 500 MG in D5% in Water 250 ML IVPB SCH ×2 (01:00)
[2018-11-18 01:39] LABS: Hematocrit 24.3 % (37.5-50.1); Hemoglobin 7.3 g/dL (12.9-16.9)
[2018-11-18] MEDS ORDERED: *HR* Morphine Sulfate SR (12 HR) 15 MG TABLET.ER PO SCH ×2 (01:45→13:45)
[2018-11-18] MEDS ORDERED: Piperacillin/Tazobactam 3.375 GM in 0.9 % Sodium Chloride Mini Bag 100 ML IVPB SCH (08:00)
--- NOTE | 2018-11-18 08:44 | Pulmonology Consult Note ---
<Alexandria Mcknight - Last Filed: 11/18/18 14:39> Date of Encounter: 11/18/18 Time of Encounter: 08:00 Assessment and Plan (1) Hemoptysis Current Visit: Yes Status: Acute Presented to the ED complaining of hemoptysis onset 5 days prior to presenttone n. Hemoptysis presenting overnight described as hot comfortable around [address] was negative for pulmonary embolism but showed increased cavitation of his given lung cancer as well as increased interstitial prominence multifocal airspace disease Underwent bronchoscopy which showed diffuse active bleeding, thrombin and epinephrine was used Keep nothing by mouth at this time Will need further intervention with bronchoscopy tomorrow Keep intubated at this time (2) Anemia Current Visit: Yes Status: Acute Acute on chronic, at presentation was 7.8 baseline is 9. After bronchoscopy hemoglobin is 8.3. Continue to monitor hemoglobin -Will need further bronchoscopy with coagulation therapy at active bleeding site -If hemoglobin is below 7 consider transfusion Qualifiers: Anemia type: unspecified type Qualified Code(s): D64.9 - Anemia, unspecified (3) Hypokalemia Current Visit: Yes Status: Acute At presentation to the ED potassium was noted to be 3.3 Received 3 L of IV fluids in the ED Sodium has resolved currently 3.7 Continue to monitor daily BMP (4) Pneumonia Current Visit: Yes Status: Acute Presented to the ED complaining of hemoptysis does have underlying cancer. Reported episode of fever 103.8 on home 5 days prior to presentation Concern for pneumonia given recent onset of fever and cough Underwent bronchoscopy today due to hemoptysis BAL pending CT of the chest showed groundglass opacification Continue vancomycin and Zosyn for broad-spectrum coverage, day 1 Blood cultures pending Qualifiers: Pneumonia type: due to unspecified organism Laterality: right Lung location: unspecified part of lung Qualified Code(s): J18.9 - Pneumonia, unspecified organism (5) Hyponatremia Current Visit: Yes Status: Acute At presentation sodium was noted to be 128 Did not have any mental status changes at presentation He received 3 L of IV fluids in the ED Normal saline has been stopped Repeat sodium this afternoon was 139 (6) Lung cancer Current Visit: Yes Status: Acute History of lung cancer currently on chemotherapy last chemotherapy treatment was 2 weeks ago Diagnosis of lung cancer in 2016, was noted to be in remission but currently active Currently has aggressive cavitation into the right lung also progression to metastatic adenopathy Did not receive his last chemotherapy due to thrombocytopenia 1 week Hematology and oncology is consulted Qualifiers: Laterality: right Lung location: upper lobe of lung Qualified Code(s): C34.11 - Malignant neoplasm of upper lobe, right bronchus or lung (7) DVT prophylaxis Current Visit: Yes Status: Acute scds History of Present Illness Consult date: 11/18/18 Reason for consult: lung mass, other (hemoptysis) Chief complaint: Hemoptysis History of present illness: Mr. 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 He reports he did not have his last chemotherapy given his low platelet count. On 11/11/18 his platelet count was noted to be 41 previously had 11/04/18 it was 124 at this admission his platelet count was noted to be 191. He also has history of COPD former smoker quit last year total pack year history of 31 years. His previous occupation was involved in mechanics and currently has pet birds dogs and cats at home. He presented to the ED complaining of hemoptysis ongoing since 11/12/18 but he reports overnight on 11/17/18 his hemoptysis worsened and he had close serial half a cupful of bloody sputum. He is not on any anticoagulation use. He also reported increased fever and chills fever of 103.8 on 11/13/18. He has not had any recent blood transfusion last one was on 11/05/15. He complains of chest wall tenderness on the right side ongoing and unchanged. She denies any emesis, nausea, abdominal pain bowel changes, dysuria or chest pain. He is also not requiring any supplemental oxygen reports she is comfortable without it right now. In the ER he had a CT of the chest which showed lung mass in the right side additionally concern for pneumonia due to inc reased opacification. Admission hemoglobin was noted to be 7.8 repeat hemoglobin is 7.3. Past Med Surg Social Fam HX - Past Medical History Medical history: cancer, COPD, migraine, other Additional medical history: LUNG CA, chronic pain. ETOH ONCE A WEEK 6 BEERS ON AVERAGE, last time 06/2018 Psychiatric history: no psych history - Past Surgical History Surgical History: orthopedic, other, other Additional surgical history: double -. 04/02/16 LEFT ADRENAL GLAND BX @[facility] - Social History Smoking Status: Former smoker Smokeless Tobacco Status: No Alcohol use: none Drug use: marijuana - Family History Mother Adopted: No Race: Hx Family Cardiac Disorders: Yes Hx Family Cancer: Yes Father Adopted: No Race: Hx Family Cardiac Disorders: Yes Medications and Allergies Omeprazole [PriLOSEC] 40 mg PO DAILY #30 cap 08/09/18 [Rx] Fluticasone/Vilanterol [Breo Ellipta 100-25 Mcg INH] 1 each IH DAILY 09/10/18 [History] Gabapentin [Neurontin] 800 mg PO TID #90 tablet 09/10/18 [Rx] Mirtazapine [Remeron] 30 mg PO HS 30 Days #30 tablet 09/10/18 [Rx] Citalopram [CeleXA] 10 mg PO DAILY #30 tablet 10/21/18 [Rx] Morphine Sulfate SR (12 HR) [MS Contin] 1 tab PO Q12HR 30 Days #60 tab 10/28/18 [Rx] OxyCODONE/APAP 5/325 [Percocet 5/325 MG] 1 - 2 tab PO Q6H PRN 30 Days #180 tablet 10/28/18 [Rx] Metoclopramide [Reglan] 10 mg PO Q6HR PRN 11/18/18 [History] Allergy/AdvReac Type Severity Reaction Status Date / Time No Known Allergies Allergy Verified 11/17/18 18:59 All Systems: The remainder of the systems were reviewed and are negative - Constitutional Constitutional: fever(s) (Resolved), no chills, no weakness - EENT Eyes: no loss of peripheral vision, no loss of vision Nose, mouth and throat: no dysphagia, no nasal congestion, no odynophagia - Cardiovascular Cardiovascular: no chest pain, no chest pain at rest, no dyspnea, no dyspnea on exertion, no edema - Respiratory Respiratory: cough, hemoptysis, no dyspnea on exertion, no chest congestion - Gastrointestinal Gastrointestinal: no abdominal pain, no diarrhea, no nausea - Genitourinary Genitourinary: no dysuria, no flank pain, no urinary incontinence - Musculoskeletal Musculoskeletal: no weakness, no myalgias, no stiffness - Integumentary Integumentary: no erythema, no rash - Neurological Neurological: no focal weakness, no headache(s), no numbness, no paresthesias, no syncope - Psychiatric Psychiatric: no anxiety, no depression - Hematologic/Lymphatic Hematologic/Lymphatic: no easy bleeding, no easy bruising Physical Examination Vital Signs: Vital Signs, Last 4 Hours Temp Pulse Resp BP Pulse Ox 11/18/18 08:37 100.0 F H 11/18/18 07:00 86 16 82/52 95 11/18/18 06:46 99.8 F H 96 20 87/67 94 11/18/18 06:31 97.3 F L 78 18 94/66 94 11/18/18 06:00 78 18 94/66 94 11/18/18 05:00 73 21 88/61 94 General appearance: no acute distress, alert Eyes: nonicteric ENT: oropharynx moist Effort: normal Auscultation: bilateral: diminished breath sounds (Bilateral bases) Cardiovascular: regular rate and rhythm Gastrointestinal: normoactive bowel sounds, soft, non-tender, non-distended Integumentary: normal Extremities: no cyanosis, no edema, no clubbing Musculoskeletal: no deformities normal mental status, pupils equal and round mood appropriate, affect normal Results - Laboratory Findings CBC and BMP: 11/18/18 12:29 11/18/18 12:29 Abnormal lab findings: Abnormal lab results RBC 3.04 M/mcL (4.19-5.50) L 11/17/18 19:31 Hgb 7.3 g/dL (12.9-16.9) L 11/18/18 01:24 Hct 24.3 % (37.5-50.1) L 11/18/18 01:24 MCV 82.6 fL (83.0-100.0) L 11/17/18 19:31 MCH 25.7 pg (28.0-33.3) L 11/17/18 19:31 MCHC 31.1 g/dL (31.6-35.5) L 11/17/18 19:31 RDW 18.3 % (11.5-14.5) H 11/17/18 19:31 Sodium 128 mEq/L (136-145) L 11/17/18 19:31 Potassium 3.3 mEq/L (3.5-5.1) L 11/17/18 19:31 Chloride 93 mEq/L (98-107) L 11/17/18 19:31 Glucose 118 mg/dL (70-105) H 11/17/18 19:31 POC Glucose 115 mg/dL (70-99) H 11/17/18 23:52 265 (280-300) L 11/17/18 19:31 Ur Specific Hecker < 1.005 (1.010-1.025) L 11/17/18 20:13 Trace (Negative) H 11/17/18 20:13 57 mOsm/kg (300-1090) L 11/17/18 20:13 Crossmatch See Detail 11/17/18 20:04 - Microbiology Findings Microbiology Findings: Microbiology, Last 48 Hours 11/17/18 19:45 Blood Culture - Preliminary Peripheral Venipuncture Culture is incubating and being continuously monitored for growth. Final report to follow. 11/17/18 20:13 Urine Culture - Preliminary Urine,Clean Catch Culture is incubating. 11/17/18 20:13 Legionella Antigen - Final Urine,Clean Catch Streptococcus pneumoniae Antigen (M - Final 11/17/18 19:31 Blood Culture - Preliminary Peripheral Venipuncture Culture is incubating and being continuously monitored for growth. Final report to follow. - Clinical Findings Intake & Output: Intake & Output 11/17/18 11/18/18 11/18/18 23:59 07:59 15:59 Intake Total 250 / 250 1872 / 1872 Output Total 2275 / 2500 225 / 2500 Balance 250 / 250 -403 / -628 -225 / -628 Weight 58.967 kg 55.8 kg Consult Discharge Plan - Plan Referrals: Viral Hoffman DO [Primary Care Provider] - <Marcelino Saucedo - Last Filed: 11/18/18 23:30> Date of Encounter: 11/18/18 Assessment and Plan (1) Acute respiratory failure Current Visit: Yes Status: Acute Qualifiers: Respiratory failure complication: unspecified whether with hypoxia or hypercapnia Qualified Code(s): J96.00 - Acute respiratory failure, unspecified whether with hypoxia or hypercapnia (2) Hemoptysis Current Visit: Yes Status: Acute (3) COPD (chronic obstructive pulmonary disease) Current Visit: Yes Status: Acute Qualifiers: COPD type: emphysema Emphysema type: centrilobular Qualified Code(s): J43.2 - Centrilobular emphysema (4) Lung cancer Current Visit: Yes Status: Acute Qualifiers: Laterality: right Lung location: upper lobe of lung Qualified Code(s): C34.11 - Malignant neoplasm of upper lobe, right bronchus or lung (5) Pneumonia Current Visit: Yes Status: Acute Qualifiers: Pneumonia type: due to unspecified organism Laterality: right Lung location: unspecified part of lung Qualified Code(s): J18.9 - Pneumonia, unspecified organism All Systems: The remainder of the systems were reviewed and are negative Physical Examination Vital Signs: Vital Signs, Last 4 Hours Temp Pulse Resp BP Pulse Ox 11/18/18 23:00 64 14 84/55 98 11/18/18 22:29 14 83/52 95 11/18/18 22:00 63 14 83/52 95 11/18/18 21:00 65 14 82/53 92 11/18/18 20:32 14 90/60 99 11/18/18 20:20 97.6 F 11/18/18 20:00 62 14 85/62 100 Ventilator Settings Ventilator Settings: Ventilator Settings, Last 8 Hours Ventilator Tidal Volume 420 Setting Ventilator Tidal Volume 420 Setting Ventilator Tidal Volume 420 Setting Ventilator Tidal Volume 420 Setting Ventilator Tidal Volume 420 Setting Ventilator Tidal Volume 420 Setting Ventilator Tidal Volume 420 Setting Ventilator Tidal Volume 420 Setting Ventilator Respiratory Rate 14 Setting Ventilator Respiratory Rate 14 Setting Ventilator Respiratory Rate 14 Setting Ventilator Respiratory Rate 14 Setting Ventilator Respiratory Rate 14 Setting Ventilator Respiratory Rate 14 Setting Ventilator Respiratory Rate 14 Setting Ventilator Respiratory Rate 14 Setting Ventilator Respiratory Rate 14 Setting Actual Respiratory Rate 14 Actual Respiratory Rate 14 Actual Respiratory Rate 14 Actual Respiratory Rate 14 Actual Respiratory Rate 14 Actual Respiratory Rate 14 Actual Respiratory Rate 14 Actual Respiratory Rate 14 Positive End Expiratory 5 Pressure Positive End Expiratory 5 Pressure Positive End Expiratory 5 Pressure Positive End Expiratory 5 Pressure Positive End Expiratory 5 Pressure Positive End Expiratory 5 Pressure Positive End Expiratory 5 Pressure Positive End Expiratory 5 Pressure Positive End Expiratory 5 Pressure Peak Inspiratory Airway 15 Pressure Peak Inspiratory Airway 18 Pressure Peak Inspiratory Airway 18 Pressure Peak Inspiratory Airway 16 Pressure Peak Inspiratory Airway 16 Pressure Peak Inspiratory Airway 15 Pressure Peak Inspiratory Airway 12 Pressure Peak Inspiratory Airway 16 Pressure Results - Laboratory Findings CBC and BMP: 11/18/18 18:20 11/18/18 12:29 ABG ABG pH 7.37 pH Units (7.32-7.45) 11/18/18 11:56 ABG pCO2 43 mmHg (35-45) 11/18/18 11:56 ABG pO2 57 mmHg (85-104) L 11/18/18 11:56 ABG O2 Saturation 88 % (95-98) L 11/18/18 11:56 PT/INR, D-dimer PT 16.9 Seconds (9.4-12.1) H 11/18/18 12:29 Abnormal lab findings: Abnormal lab results RBC 3.04 M/mcL (4.19-5.50) L 11/17/18 19:31 Hgb 8.6 g/dL (12.9-16.9) L 11/18/18 18:20 Hct 28.7 % (37.5-50.1) L 11/18/18 18:20 MCV 82.6 fL (83.0-100.0) L 11/17/18 19:31 MCH 25.7 pg (28.0-33.3) L 11/17/18 19:31 MCHC 31.1 g/dL (31.6-35.5) L 11/17/18 19:31 RDW 18.3 % (11.5-14.5) H 11/17/18 19:31 PT 16.9 Seconds (9.4-12.1) H 11/18/18 12:29 ABG pO2 57 mmHg (85-104) L 11/18/18 11:56 ABG O2 Saturation 88 % (95-98) L 11/18/18 11:56 Sodium 128 mEq/L (136-145) L 11/17/18 19:31 Potassium 3.3 mEq/L (3.5-5.1) L 11/17/18 19:31 Chloride 93 mEq/L (98-107) L 11/17/18 19:31 Glucose 107 mg/dL (70-105) H 11/18/18 12:29 POC Glucose 115 mg/dL (70-99) H 11/17/18 23:52 265 (280-300) L 11/17/18 19:31 Calcium 8.5 mg/dL (8.6-10.3) L 11/18/18 12:29 7.42 ng/mL (0.00-0.15) H 11/18/18 12:29 Ur Specific Hecker < 1.005 (1.010-1.025) L 05/22/19 20:13 Trace (Negative) H 11/17/18 20:13 57 mOsm/kg (300-1090) L 11/17/18 20:13 Fluid Appearance Hazy (Clear) A 11/18/18 10:50 Crossmatch See Detail 11/17/18 20:04 - Microbiology Findings Microbiology Findings: Microbiology, Last 48 Hours 11/18/18 10:50 Respiratory Culture - Preliminary Right Lower Lobe Lung 11/17/18 19:45 Blood Culture - Preliminary Peripheral Venipuncture Culture is incubating and being continuously monitored for growth. Final report to follow. 11/17/18 20:13 Urine Culture - Preliminary Urine,Clean Catch Culture is incubating. 11/17/18 20:13 Legionella Antigen - Final Urine,Clean Catch Streptococcus pneumoniae Antigen (M - Final 11/17/18 19:31 Blood Culture - Preliminary Peripheral Venipuncture Culture is incubating and being continuously monitored for growth. Final report to follow. - Clinical Findings Intake & Output: Intake & Output 11/18/18 11/18/18 11/18/18 07:59 15:59 23:59 Intake Total 1872 / 3497 1090 / 3497 535 / 3497 Output Total 2275 / 3400 625 / 3400 500 / 3400 Balance -403 / 97 465 / 97 35 / 97 Weight 55.8 kg - Attending Attestation I saw and evaluated this patient and my medical decision-making was reviewed with the Resident Physician. I agree with the documented findings, disposition and treatment plan as described except to the extent set forth below. We independently had [id number] contact with the patient Please see my separate note
[2018-11-18] MEDS ORDERED: *HR* Propofol 200 MG/20 ML VIAL IVP ONE (09:19)
[2018-11-18] MEDS ORDERED: Lidocaine -MPF 4% 5 ML AMPUL ONE (09:19)
[2018-11-18] MEDS ORDERED: *HR* Succinylcholine 200 MG/10 ML VIAL IVP ONE (09:19)
[2018-11-18] MEDS ORDERED: *HR* FentaNYL (PF) 100 MCG/2 ML VIAL ONE (09:19)
[2018-11-18] MEDS ORDERED: Lidocaine -MPF 2% 2 ML VIAL ONE (09:19)
[2018-11-18] MEDS ORDERED: EPHEDrine 50 MG/ML VIAL ONE (09:34)
[2018-11-18] MEDS ORDERED: *HR* Midazolam HCl 2 MG/2 ML VIAL ONE ×2 (10:03→10:10)
[2018-11-18] MEDS ORDERED: Ondansetron 4 MG/2 ML VIAL ONE (10:04)
[2018-11-18] MEDS ORDERED: *HR* Rocuronium Bromide 50 MG/5 ML VIAL ONE (10:04)
[2018-11-18] MEDS ORDERED: Dexamethasone 4 MG/ML VIAL ONE (10:04)
--- NOTE | 2018-11-18 10:17 | Anesthesia Evaluation PreOp ---
Date of Encounter: 11/18/18 Time of Encounter: 10:15 - Past History Planned Operation: Bronchoscopy Cardiac History: Denies any Significant Hx Pulmonary History: Smoker (30 years), COPD, Other (squamous cell lung cancer dx 01/2016 S/P chemo/XRT) ANALYTICAL LABORATORY TECHNICIAN History: Other (migraine TRENT's) Other Medical History: GERD Anesthesia History: No Prior Anesthetic Complications, Past Anesthesia Alcohol Use: none (H/O heavy use, quit 06/2018) Drug use: marijuana Medications and Allergies Albuterol Sulfate [Proair Respiclick] 90 mcg IH BID PRN 05/14/16 [History] Lidocaine/Prilocaine [Emla] 1 appl TP DAILY #30 gm 01/21/18 [Rx] Promethazine [Phenergan] 25 mg PO Q6HR PRN #30 tablet 01/21/18 [Rx] LORazepam [Ativan] 0.5 mg PO BID PRN 30 Days #60 tablet 07/12/18 [Rx] Omeprazole [PriLOSEC] 40 mg PO DAILY #30 cap 08/09/18 [Rx] Fluticasone/Vilanterol [Breo Ellipta 100-25 Mcg INH] 1 each IH DAILY 09/10/18 [History] Gabapentin [Neurontin] 800 mg PO TID #90 tablet 09/10/18 [Rx] Mirtazapine [Remeron] 30 mg PO HS 30 Days #30 tablet 09/10/18 [Rx] Citalopram [CeleXA] 10 mg PO DAILY #30 tablet 10/21/18 [Rx] Morphine Sulfate SR (12 HR) [MS Contin] 1 tab PO Q12HR 30 Days #60 tab 10/28/18 [Rx] OxyCODONE/APAP 5/325 [Percocet 5/325 MG] 1 - 2 tab PO Q6H PRN 30 Days #180 tablet 10/28/18 [Rx] Fluticasone/Umeclidin/Vilanter [Trelegy Ellipta 100-62.5-25] 1 each IH DAILY 11/17/18 [History] Allergy/AdvReac Type Severity Reaction Status Date / Time No Known Allergies Allergy Verified 11/17/18 18:59 - Meds/Allergy Pre-op Review Medications Reviewed: Yes Allergies Reviewed: Yes Beta Blockers on Current Med List: No Anesthesia Results - Labs 11/18/18 01:24 11/17/18 19:31 - Imaging Chest x-ray: report reviewed (09/30/2018 IMPRESSION: Right upper chest mass abutting the mediastinum as previously demonstrated on a CT evaluation from 07/01/2018. This relates to a right upper chest malignancy also previously documented.) Additional studies: 11/17/2018 CT Angio Chest IMPRESSION: There no findings diagnostic of pulmonary embolus There is a large amount of abnormal opacification in the right hemithorax extending from the apex to the infrahilar region. There is increasing cavitation and/or necrosis in this opacification and there is also increasing interstitial prominence and multifocal airspace disease in the periphery of the right lung. This is nonspecific and may represent pneumonia or even lymphangitic tumor spread. Multifocal ground-glass attenuation in the left hemithorax is improved. 10/15/[address] IMPRESSION: 1. Gross interval progression cavitary right upper lobe mass into the right side of the mediastinum and right hilum resulting in occlusion of the bronchus to the right lower lobe and marked narrowing branches of the right pulmonary artery. 2. Progression of metastatic adenopathy. 3. Numerous new pulmonary nodules bilateral lungs, presumably metastasis, as well as new findings of interlobular thickening in the right lung suspicious for lymphangitic carcinomatosis. 4. Stable left adrenal gland nodule, presumably metastatic. I do not appreciate any right adrenal nodule on this exam. 5. Nonspecific anterior urinary bladder wall thickening has developed. This is nonspecific and could be related to cystitis. Anesthesia Exam Vital Signs/O2 Sat/Glucose, Most Recent Temp Pulse Resp BP Pulse Ox 93 F L 88 18 101/69 93 11/18/18 09:00 11/18/18 09:00 11/18/18 09:00 11/18/18 09:00 11/18/18 09:00 Blood Glucose* 115 Height: 5'5"/1.65m Weight: 123 lbs/55.8 kg NPO (# of Hours): 8 Pain Scale: 0 Pain Scale Used: Numeric (1 - 10) - HEENT Pupil (Motor): EOMI Mallampati: II Teeth: Edentulous Oral Opening: Greater than 3 - ANALYTICAL LABORATORY TECHNICIAN LOC: Oriented ANALYTICAL LABORATORY TECHNICIAN Motor: Normal RUE, Normal LUE, Normal RLE, Normal LLE, Normal Face ANALYTICAL LABORATORY TECHNICIAN Sensory: Normal: RUE, LUE, RLE, Face, Deficit: LLE (numbness) - Cardiac Rhythm: Regular Murmur: None - Pulmonary Breath Sounds: bilateral Rhonchi (decreased BS right > left) Respiratory Effort: Symmetrical Anesthesia Assess/Plan ASA Score: 3 Level of consciousness: Cooperative, Oriented, Tranquil Anesthetic Plan: General Monitoring Plan: Standard Monitors Recovery Plan: PACU
[2018-11-18] MEDS ORDERED: *HR* EPINEPHrine 1 MG/10 ML SYRINGE INTRATRACH PRN (11:12)
[2018-11-18] MEDS ORDERED: Artificial Tears SOLN 15 ML BOTTLE BOTH EYES PRN (11:17)
[2018-11-18] MEDS: FentaNYL (PF) 1,000 MCG in 0.9 % Sodium Chloride 80 ML IVC SCH ×2 (11:49→20:29)
[2018-11-18 11:59] LABS: ABG Base Excess -1 mEq/L (-2 to 3); ABG HCO3 25 mEq/L (21-27); ABG Oxygen Saturation 88 % (95-98); ABG PCO2 43 mmHg (35-45); ABG PH 7.37 pH Units (7.32-7.45); ABG PO2 57 mmHg (85-104); ABG TCO2 26 mEq/L (20-26); Blood Gas PEEP 5 cm H2O; Blood Gas Respiration Rate 14; Blood Gas VT 420 cc
--- NOTE | 2018-11-18 12:34 | Oncology Inp Consult Note ---
<Tyron Li - Last Filed: 11/18/18 16:04> Date of Encounter: 11/18/18 Time of Encounter: 16:04 - Data of Consult Requesting Physician: Jennifer Tsang MD Primary Care Provider: Viral Hoffman DO Medications and Allergies Omeprazole [PriLOSEC] 40 mg PO DAILY #30 cap 08/09/18 [Rx] Fluticasone/Vilanterol [Breo Ellipta 100-25 Mcg INH] 1 each IH DAILY 09/10/18 [History] Gabapentin [Neurontin] 800 mg PO TID #90 tablet 09/10/18 [Rx] Mirtazapine [Remeron] 30 mg PO HS 30 Days #30 tablet 09/10/18 [Rx] Citalopram [CeleXA] 10 mg PO DAILY #30 tablet 10/21/18 [Rx] Morphine Sulfate SR (12 HR) [MS Contin] 1 tab PO Q12HR 30 Days #60 tab 10/28/18 [Rx] OxyCODONE/APAP 5/325 [Percocet 5/325 MG] 1 - 2 tab PO Q6H PRN 30 Days #180 tablet 10/28/18 [Rx] Metoclopramide [Reglan] 10 mg PO Q6HR PRN 11/18/18 [History] Allergy/AdvReac Type Severity Reaction Status Date / Time No Known Allergies Allergy Verified 11/17/18 18:59 Consult Discharge Plan - Plan Referrals: Viral Hoffman DO [Primary Care Provider] - Inpatient Charges Provider: Dr. Kaley Li Consult - Inpatient: [id number] - Attending Attestation I examined this patient and my medical decision-making was reviewed with the Advanced Practice Nurse. I agree with the documented findings, disposition and treatment plan as described except to the extent set forth below. -H/o Squamous cell carcinoma of the lung, now on Gemcitabine for treatment -Now p/w hemoptysis -Bronchoscopy done and shows bleeding in the RUL/RLL, received epi/thrombin to both these areas. -He remains acutely sick and ill in the ICU, and is currently intubated <Tennille Freedman - Last Filed: 11/18/18 17:18> Date of Encounter: 11/18/18 Assessment and Plan (1) Cancer of right lung Status: Acute Assessment and plan: Recurrent Squamous cell carcinoma of the right upper lobe. Prior treatment as lsited in HPI Current therapy includes single agent Gemcitabine initiated 10/28/2018. He is s/p Cycle 1, Day 8 on 11/04/2018. Day 16 held due to thrombocytopenia/anemia. Plan: Further treatment options on outpatient basis, TBD dependent upon recovery from acute issues and continued discussions in regards to goals of care Qualifiers: Lung location: upper lobe of lung Qualified Code(s): C34.11 - Malignant neoplasm of upper lobe, right bronchus or lung (2) Hemoptysis Status: Acute Assessment and plan: Presented with report of significant amounts of hemoptysis requiring ICU admission S/P bronschopscopy today which revealed active bleeding in the RLL, epi/thrombin instilled, as well as friable endonronchial lesion in the RUL, epi/thrombin instilled Plan: Check PT/INR/PTT S/P 1 unit PRBC, continue to monitor Hgb, check B12, folate, Iron Discussed with Dr. Eusebio Jimenez, Radiation Oncologist, may plan for one fraction radiotherapy with goal to control further bleeding with right lung lesions vs. consideration bronchial artery embolization Once patient is extabated Dr. Jimenez is planning to discuss options with patient/family - Data of Consult Requesting Physician: Jennifer Tsang MD Primary Care Provider: Viral Hoffman DO - Consult Narrative Reason for consult: Squamous cell carcinoma of the lung History of present illness: Mr. Carmona is a 53 year old male with recurrent Squamous cell carcinoma of the right upper lobe. He has a history of stage III (T3N2) squamous cell carcinoma of the right upper lobe of the lung initially diagnosed 02/21/16. S/P concurrent chemoradiation with Cisplatin/Etoposide completed 06/19/16. Right upper lobe recurrence by CT 10/14/2017, confirmed by pathology 01/12/2018. PET/CT imaging 01/06/2018 without evidence of distant spread. Inadequate tissue for PD-L1/next generation sequencing. Secondary to location of tumor extent of disease, he was not a surgical candidate after evaluation by Dr. Bunn of [facility] thoracic surgery. Carboplatin, Abraxane with pembrolizumab x 4 cycles 01/21/2018-03/24/18. Pembrolizumab maintenance 04/16/18-09/30/2018, progressed. Current therapy includes single agent Gemcitabine initiated 10/28/2018. He is s/p Cycle 1, Day 8 on 11/04/2018. Day 16 held due to thrombocytopenia/anemia. He presented to [facility] ED overnight with report of worsening hemoptysis as well as increased SOB, fever of up to 103F/chills, weakness. Started on vancomycin/zosyn. Cultures obtianed. He has been admitted to ICU due to report of significant hemoptysis. Patients girlfriend states he started experiences hemoptysis over weekend, multiple times per day, last night he coughed up a significant amount of blood which left "a puddle on the floor". CTA of the chest in ER reveals no PE, large amount of abnormal opacification in the right hemithorax extending from the apex to the infrahilar region, increasing cavitation and/or necrosis in this opacification and there is also increasing interstitial prominence and multifocal airspace disease in the periphery of the right lung which may represent pneumonia or even lymphangitic tumor spread. Past Med Surg Social Fam HX - Past Medical History Medical history: cancer, COPD, migraine, other Additional medical history: LUNG CA, chronic pain. ETOH ONCE A WEEK 6 BEERS ON AVERAGE, last time 06/2018 Psychiatric history: no psych history - Past Surgical History Surgical History: orthopedic, other, other Additional surgical history: double -. 04/02/16 LEFT ADRENAL GLAND BX @[facility] DEPARTMENT - Social History Smoking Status: Former smoker Smokeless Tobacco Status: No Alcohol use: none (H/O heavy use, quit 06/2018) Drug use: marijuana - Family History Mother Adopted: No Race: Hx Family Cardiac Disorders: Yes Hx Family Cancer: Yes Father Adopted: No Race: Hx Family Cardiac Disorders: Yes ROS unobtainable: due to endotracheal tube Oncology - Exam - Constitutional Exam: intubated and on mechanical ventilation - Head Head exam: Present: atraumatic - Respiratory Respiratory exam: Present: CTAB. Absent: respiratory distress - Cardiovascular Cardiovascular exam: Present: RRR - GI/Abdominal GI/Abdominal exam: Present: normal bowel sounds, soft - Extremities Exam Extremities exam: Present: normal inspection. Absent: calf tenderness - Neurological Exam Additional comments: unable to assess, sedated and on mechanical ventilation - Psychiatric Additional comments: unable to assess - Skin Skin exam: Present: dry, pallor, warm
[2018-11-18 12:56] LABS: Hematocrit 27.5 % (37.5-50.1); Hemoglobin 8.3 g/dL (12.9-16.9)
[2018-11-18 13:17] LABS: INR 1.5; Prothrombin Time 16.9 Seconds (9.4-12.1)
[2018-11-18 13:18] LABS: BUN/Creatinine Ratio 9 (6-26); Blood Urea Nitrogen 6 mg/dL (6-20); Calcium 8.5 mg/dL (8.6-10.3); Carbon Dioxide 26 mEq/L (23-29); Chloride 104 mEq/L (98-107); Glucose 107 mg/dL (70-105); Osmolality,Calculated 286 (280-300); Potassium 3.7 mEq/L (3.5-5.1); Sodium 139 mEq/L (136-145); eGFR For Non-African Americans > 60 (> 60)
[2018-11-18 13:19] LABS: Activated Partial Thrombo Time 32.5 Seconds (26.0-36.0)
[2018-11-18 15:19] LABS: Appearance of Body Fluid Hazy (Clear); Volume of Body Fluid 12 mL
[2018-11-18] MEDS: Artificial Tears SOLN 15 ML BOTTLE BOTH EYES SCH ×3 (17:32→20:26)
[2018-11-18] MEDS: Chlorhexidine Rinse 15 ML MOUTHWASH MM SCH ×2 (17:32→20:31)
[2018-11-18] MEDS: Piperacillin/Tazobactam 3.375 GM in 0.9 % Sodium Chloride Mini Bag 100 ML IVPB SCH (17:49)
[2018-11-18 19:02] LABS: Hematocrit 28.7 % (37.5-50.1); Hemoglobin 8.6 g/dL (12.9-16.9)
--- NOTE | 2018-11-18 19:52 | Pulmonology Consult Note ---
Date of Encounter: 11/18/18 Time of Encounter: 08:00 Assessment and Plan (1) Acute respiratory failure Current Visit: Yes Status: Acute Patient has acceptable oxygenation and ventilation no active bleeding from the endotracheal tube. If patient bleeding worsens with worsening V/Q mismatch patient and he might need lung isolation with bronchial artery embolization will do a relook bronchoscopy tomorrow with possible photocoagulation. Will discuss the case with interventional standpipe tender. Qualifiers: Respiratory failure complication: unspecified whether with hypoxia or hypercapnia Qualified Code(s): J96.00 - Acute respiratory failure, unspecified whether with hypoxia or hypercapnia (2) Hemoptysis Current Visit: Yes Status: Acute Patient was actively bleeding from the right lower lobe and right upper lobe I instilled epinephrine and thrombin bleeding stopped will need a second look bronchoscopy tomorrow with possible PHOTOCOAGULATION. IF THAT DOES NOT CONTROL THE BLEEDING PATIENT WILL NEED Bronchial artery EMBOLIZATION by interventional radiology patient arrived intubated and sedated for second look bronchoscopy tomorrow we will discuss his case with our interventional standpipe tender. (3) COPD (chronic obstructive pulmonary disease) Current Visit: Yes Status: Acute Continue scheduled bronchodilators. Qualifiers: COPD type: emphysema Emphysema type: centrilobular Qualified Code(s): J43.2 - Centrilobular emphysema (4) Lung cancer Current Visit: Yes Status: Acute Patient has recurrent stage III squamous cell carcinoma of lung now with bleeding. The bleeding is well controlled might need to have radiation therapy. Appreciate oncology input Qualifiers: Laterality: right Lung location: upper lobe of lung Qualified Code(s): C34.11 - Malignant neoplasm of upper lobe, right bronchus or lung (5) Pneumonia Current Visit: Yes Status: Acute Changes of postobstructive pneumonia to continue broad-spectrum antibiotics. Qualifiers: Pneumonia type: due to unspecified organism Laterality: right Lung location: unspecified part of lung Qualified Code(s): J18.9 - Pneumonia, unspecified organism Past Med Surg Social Fam HX - Past Medical History Medical history: cancer, COPD, migraine, other Additional medical history: LUNG CA, chronic pain. ETOH ONCE A WEEK 6 BEERS ON AVERAGE, last time 06/2018 Psychiatric history: no psych history - Past Surgical History Surgical History: orthopedic, other, other Additional surgical history: double -. 04/02/16 LEFT ADRENAL GLAND BX [facility] DEPARTMENT - Social History Smoking Status: Former smoker Smokeless Tobacco Status: No Alcohol use: none (H/O heavy use, quit 06/2018) Drug use: marijuana - Family History Mother Adopted: No Race: Hx Family Cardiac Disorders: Yes Hx Family Cancer: Yes Father Adopted: No Race: Hx Family Cardiac Disorders: Yes Medications and Allergies Omeprazole [PriLOSEC] 40 mg PO DAILY #30 cap 08/09/18 [Rx] Fluticasone/Vilanterol [Breo Ellipta 100-25 Mcg INH] 1 each IH DAILY 09/10/18 [History] Gabapentin [Neurontin] 800 mg PO TID #90 tablet 09/10/18 [Rx] Mirtazapine [Remeron] 30 mg PO HS 30 Days #30 tablet 09/10/18 [Rx] Citalopram [CeleXA] 10 mg PO DAILY #30 tablet 10/21/18 [Rx] Morphine Sulfate SR (12 HR) [MS Contin] 1 tab PO Q12HR 30 Days #60 tab 10/28/18 [Rx] OxyCODONE/APAP 5/325 [Percocet 5/325 MG] 1 - 2 tab PO Q6H PRN 30 Days #180 tablet 10/28/18 [Rx] Metoclopramide [Reglan] 10 mg PO Q6HR PRN 11/18/18 [History] Allergy/AdvReac Type Severity Reaction Status Date / Time No Known Allergies Allergy Verified 11/17/18 18:59 All Systems: The remainder of the systems were reviewed and are negative Physical Examination Vital Signs: Vital Signs, Last 4 Hours Temp Pulse Resp BP Pulse Ox 11/18/18 19:04 14 91/64 98 11/18/18 19:00 63 14 91/64 99 11/18/18 18:00 64 14 84/63 100 11/18/18 17:00 60 14 96/71 100 11/18/18 16:57 96.3 F L 11/18/18 16:00 62 14 93/68 100 Ventilator Settings Ventilator Settings: Ventilator Settings, Last 8 Hours Ventilator Tidal Volume 420 Setting Ventilator Tidal Volume 420 Setting Ventilator Tidal Volume 420 Setting Ventilator Respiratory Rate 14 Setting Ventilator Respiratory Rate 14 Setting Ventilator Respiratory Rate 14 Setting Ventilator Respiratory Rate 14 Setting Ventilator Respiratory Rate 14 Setting Actual Respiratory Rate 14 Actual Respiratory Rate 14 Positive End Expiratory 5 Pressure Positive End Expiratory 5 Pressure Positive End Expiratory 5 Pressure Positive End Expiratory 5 Pressure Positive End Expiratory 5 Pressure Peak Inspiratory Airway 12 Pressure Peak Inspiratory Airway 16 Pressure Results - Laboratory Findings CBC and BMP: 11/18/18 18:20 11/18/18 12:29 ABG ABG pH 7.37 pH Units (7.32-7.45) 11/18/18 11:56 ABG pCO2 43 mmHg (35-45) 11/18/18 11:56 ABG pO2 57 mmHg (85-104) L 11/18/18 11:56 ABG O2 Saturation 88 % (95-98) L 11/18/18 11:56 PT/INR, D-dimer PT 16.9 Seconds (9.4-12.1) H 11/18/18 12:29 Abnormal lab findings: Abnormal lab results RBC 3.04 M/mcL (4.19-5.50) L 11/17/18 19:31 Hgb 8.6 g/dL (12.9-16.9) L 11/18/18 18:20 Hct 28.7 % (37.5-50.1) L 11/18/18 18:20 MCV 82.6 fL (83.0-100.0) L 11/17/18 19:31 MCH 25.7 pg (28.0-33.3) L 11/17/18 19:31 MCHC 31.1 g/dL (31.6-35.5) L 11/17/18 19:31 RDW 18.3 % (11.5-14.5) H 11/17/18 19:31 PT 16.9 Seconds (9.4-12.1) H 11/18/18 12:29 ABG pO2 57 mmHg (85-104) L 11/18/18 11:56 ABG O2 Saturation 88 % (95-98) L 11/18/18 11:56 Sodium 128 mEq/L (136-145) L 11/17/18 19:31 Potassium 3.3 mEq/L (3.5-5.1) L 11/17/18 19:31 Chloride 93 mEq/L (98-107) L 11/17/18 19:31 Glucose 107 mg/dL (70-105) H 11/18/18 12:29 POC Glucose 115 mg/dL (70-99) H 11/17/18 23:52 265 (280-300) L 11/17/18 19:31 Calcium 8.5 mg/dL (8.6-10.3) L 11/18/18 12:29 7.42 ng/mL (0.00-0.15) H 11/18/18 12:29 Ur Specific [place] < 1.005 (1.010-1.025) L 11/17/18 20:13 Trace (Negative) H 11/17/18 20:13 57 mOsm/kg (300-1090) L 11/17/18 20:13 Fluid Appearance Hazy (Clear) A 11/18/18 10:50 Crossmatch See Detail 11/17/18 20:04 - Microbiology Findings Microbiology Findings: Microbiology, Last 48 Hours 11/18/18 10:50 Respiratory Culture - Preliminary Right Lower Lobe Lung 11/17/18 19:45 Blood Culture - Preliminary Peripheral Venipuncture Culture is incubating and being continuously monitored for growth. Final report to follow. 11/17/18 20:13 Urine Culture - Preliminary Urine,Clean Catch Culture is incubating. 11/17/18 20:13 Legionella Antigen - Final Urine,Clean Catch Streptococcus pneumoniae Antigen (M - Final 11/17/18 19:31 Blood Culture - Preliminary Peripheral Venipuncture Culture is incubating and being continuously monitored for growth. Final report to follow. - Clinical Findings Intake & Output: Intake & Output 11/18/18 11/18/18 11/18/18 07:59 15:59 23:59 Intake Total 1872 / 3027 1090 / 3027 65 / 3027 Output Total 2275 / 3250 625 / 3250 350 / 3250 Balance -403 / -223 465 / -223 -285 / -223 Weight 55.8 kg Consult Discharge Plan - Plan Referrals: Viral Hoffman DO [Primary Care Provider] - Critical Care Time Critical Care Time: Yes Total Critical Care Time: 50 Attestation: I spent 50 minutes of Critical Care time with this patient. It involved decision making of high complexity to assess, manipulate, and support vital organ system failure and/or to prevent further life threatening deterioration of the patient's condition. The time involved in the performance of separately reportable procedures was not counted toward critical care time.
[2018-11-19] MEDS: Artificial Tears SOLN 15 ML BOTTLE BOTH EYES SCH ×4 (00:33→18:08)
[2018-11-19] MEDS: Piperacillin/Tazobactam 3.375 GM in 0.9 % Sodium Chloride Mini Bag 100 ML IVPB SCH ×3 (00:33→18:10)
[2018-11-19] MEDS ORDERED: Azithromycin 500 MG in D5% in Water 250 ML IVPB SCH (01:00)
[2018-11-19 01:47] LABS: Hemoglobin 8.7 g/dL (12.9-16.9)
[2018-11-19 04:47] LABS: ABG Base Excess 1 mEq/L (-2 to 3); ABG HCO3 27 mEq/L (21-27); ABG Oxygen Saturation 100 % (95-98); ABG PCO2 44 mmHg (35-45); ABG PH 7.39 pH Units (7.32-7.45); ABG PO2 303 mmHg (85-104); ABG TCO2 28 mEq/L (20-26); Blood Gas Modality VC; Blood Gas PEEP 5 cm H2O; Blood Gas Respiration Rate 14; Blood Gas VT 420 cc
[2018-11-19] MEDS: FentaNYL (PF) 1,000 MCG in 0.9 % Sodium Chloride 80 ML IVC SCH ×2 (04:54→13:00)
[2018-11-19 05:19] LABS: Basophils % 0.2 %; Hematocrit 29.7 % (37.5-50.1); Hemoglobin 8.9 g/dL (12.9-16.9); Immature Granulocytes % 0.9 % (0-4); Lymphocytes # 0.7 K/mcL (0.6-4.6); Lymphocytes % 6.3 %; Mean Corpuscular Hemoglobin 25.7 pg (28.0-33.3); Mean Corpuscular Volume 85.8 fL (83.0-100.0); Mean Platelet Volume 9.8 fL (9.4-12.4); Monocytes # 0.8 K/mcL (0.0-1.3); Monocytes % 7.7 %; Neutrophils # 9.3 K/mcL (1.6-8.9); Platelet Count 211 K/mcL (140-400); Red Blood Count 3.46 M/mcL (4.19-5.50); Red Cell Distribution Width 18.5 % (11.5-14.5); Segmented Neutrophils % 84.9 %
[2018-11-19 05:25] LABS: INR 1.4; Prothrombin Time 16.2 Seconds (9.4-12.1)
[2018-11-19 05:36] LABS: % Iron Saturation 6 % (20-55); BUN/Creatinine Ratio 16 (6-26); Blood Urea Nitrogen 13 mg/dL (6-20); Calcium 8.8 mg/dL (8.6-10.3); Carbon Dioxide 24 mEq/L (23-29); Chloride 106 mEq/L (98-107); Glucose 115 mg/dL (70-105); Iron 12 mcg/dL (65-175); Osmolality,Calculated 289 (280-300); Potassium 4.5 mEq/L (3.5-5.1); Sodium 139 mEq/L (136-145); Transferrin 149 mg/dL (203-362); eGFR For Non-African Americans > 60 (> 60)
[2018-11-19 05:54] LABS: Ferritin 539 ng/mL (20-250)
[2018-11-19 05:58] LABS: Platelet Estimate Normal (Normal)
[2018-11-19 06:00] LABS: Folate 9.6 ng/mL (3.0-16.0)
[2018-11-19 06:03] LABS: Vitamin B12 > 1500 pg/mL (250-1100)
[2018-11-19] MEDS ORDERED: Dexmedetomidine HCl 400 MCG/100 ML MLS IVC SCH (08:30)
--- NOTE | 2018-11-19 08:30 | Pulmonology Progress Note ---
<Alexandria Mcknight - Last Filed: 11/19/18 08:30> Date of Encounter: 11/19/18 Assessment and Plan (1) Hemoptysis Status: Acute (2) Anemia Status: Acute Qualifiers: Anemia type: unspecified type Qualified Code(s): D64.9 - Anemia, unspecified (3) Hypokalemia Status: Acute (4) Pneumonia Status: Acute Qualifiers: Pneumonia type: due to unspecified organism Laterality: right Lung location: unspecified part of lung Qualified Code(s): J18.9 - Pneumonia, unspecified organism (5) Hyponatremia Status: Acute (6) Lung cancer Status: Acute Qualifiers: Laterality: right Lung location: upper lobe of lung Qualified Code(s): C34.11 - Malignant neoplasm of upper lobe, right bronchus or lung (7) DVT prophylaxis Status: Acute Objective PUL Vital signs: Last Vital Signs Temp 97.5 F L 11/19/18 07:43 Pulse 70 11/19/18 08:00 Resp 17 11/19/18 08:00 BP 79/58 11/19/18 08:00 Pulse Ox 99 11/19/18 08:00 Ventilator Settings Ventilator Settings: Ventilator Settings, Last 8 Hours Ventilator Tidal Volume 420 Setting Ventilator Tidal Volume 420 Setting Ventilator Tidal Volume 420 Setting Ventilator Tidal Volume 420 Setting Ventilator Tidal Volume 420 Setting Ventilator Tidal Volume 420 Setting Ventilator Tidal Volume 420 Setting Ventilator Tidal Volume 420 Setting Ventilator Tidal Volume 420 Setting Ventilator Tidal Volume 420 Setting Ventilator Tidal Volume 420 Setting Ventilator Tidal Volume 420 Setting Ventilator Tidal Volume 420 Setting Ventilator Respiratory Rate 14 Setting Ventilator Respiratory Rate 14 Setting Ventilator Respiratory Rate 14 Setting Ventilator Respiratory Rate 14 Setting Ventilator Respiratory Rate 14 Setting Ventilator Respiratory Rate 14 Setting Ventilator Respiratory Rate 14 Setting Ventilator Respiratory Rate 14 Setting Ventilator Respiratory Rate 14 Setting Ventilator Respiratory Rate 14 Setting Ventilator Respiratory Rate 14 Setting Ventilator Respiratory Rate 14 Setting Ventilator Respiratory Rate 14 Setting Actual Respiratory Rate 17 Actual Respiratory Rate 15 Actual Respiratory Rate 15 Actual Respiratory Rate 15 Actual Respiratory Rate 14 Actual Respiratory Rate 14 Actual Respiratory Rate 15 Actual Respiratory Rate 15 Actual Respiratory Rate 16 Actual Respiratory Rate 23 Actual Respiratory Rate 14 Actual Respiratory Rate 14 Positive End Expiratory 5 Pressure Positive End Expiratory 5 Pressure Positive End Expiratory 5 Pressure Positive End Expiratory 5 Pressure Positive End Expiratory 5 Pressure Positive End Expiratory 5 Pressure Positive End Expiratory 5 Pressure Positive End Expiratory 5 Pressure Positive End Expiratory 5 Pressure Positive End Expiratory 5 Pressure Positive End Expiratory 5 Pressure Positive End Expiratory 5 Pressure Positive End Expiratory 5 Pressure Peak Inspiratory Airway 9 Pressure Peak Inspiratory Airway 12 Pressure Peak Inspiratory Airway 14 Pressure Peak Inspiratory Airway 7.8 Pressure Peak Inspiratory Airway 11 Pressure Peak Inspiratory Airway 9.8 Pressure Peak Inspiratory Airway 6.8 Pressure Peak Inspiratory Airway 14 Pressure Peak Inspiratory Airway 18 Pressure Peak Inspiratory Airway 16 Pressure Results - Laboratory Findings CBC and BMP: 11/19/18 04:57 11/19/18 04:57 ABG ABG pH 7.39 pH Units (7.32-7.45) 11/19/18 04:43 ABG pCO2 44 mmHg (35-45) 11/19/18 04:43 ABG pO2 303 mmHg (85-104) H 11/19/18 04:43 ABG O2 Saturation 100 % (95-98) H 11/19/18 04:43 PT/INR, D-dimer PT 16.2 Seconds (9.4-12.1) H 11/19/18 04:57 Abnormal lab findings: Abnormal lab results RBC 3.46 M/mcL (4.19-5.50) L 11/19/18 04:57 Hgb 8.9 g/dL (12.9-16.9) L 11/19/18 04:57 Hct 29.7 % (37.5-50.1) L 11/19/18 04:57 MCV 82.6 fL (83.0-100.0) L 11/17/18 19:31 MCH 25.7 pg (28.0-33.3) L 11/19/18 04:57 MCHC 30.0 g/dL (31.6-35.5) L 11/19/18 04:57 RDW 18.5 % (11.5-14.5) H 11/19/18 04:57 9.3 K/mcL (1.6-8.9) H 11/19/18 04:57 PT 16.2 Seconds (9.4-12.1) H 11/19/18 04:57 ABG pO2 303 mmHg (85-104) H 11/19/18 04:43 ABG Total CO2 28 mEq/L (20-26) H 11/19/18 04:43 ABG O2 Saturation 100 % (95-98) H 11/19/18 04:43 Sodium 128 mEq/L (136-145) L 11/17/18 19:31 Potassium 3.3 mEq/L (3.5-5.1) L 11/17/18 19:31 Chloride 93 mEq/L (98-107) L 11/17/18 19:31 Glucose 115 mg/dL (70-105) H 11/19/18 04:57 POC Glucose 107 mg/dL (70-99) H 11/19/18 00:29 265 (280-300) L 11/17/18 19:31 Calcium 8.5 mg/dL (8.6-10.3) L 11/18/18 12:29 Iron 12 mcg/dL (65-175) L 11/19/18 04:57 % Saturation 6 % (20-55) L 11/19/18 04:57 149 mg/dL (203-362) L 11/19/18 04:57 539 ng/mL (20-250) H 11/19/18 04:57 Vitamin B12 > 1500 pg/mL (250-1100) H 11/19/18 04:57 7.42 ng/mL (0.00-0.15) H 11/18/18 12:29 Ur Specific Kennard < 1.005 (1.010-1.025) L 11/17/18 20:13 Trace (Negative) H 11/17/18 20:13 57 mOsm/kg (300-1090) L 11/17/18 20:13 Fluid Appearance Hazy (Clear) A 11/18/18 10:50 Crossmatch See Detail 11/17/18 20:04 - Microbiology Findings Microbiology Findings: Microbiology, Last 48 Hours 11/17/18 20:13 Urine Culture - Final Urine,Clean Catch No significant growth. 11/18/18 10:50 Respiratory Culture - Preliminary Right Lower Lobe Lung 11/17/18 19:45 Blood Culture - Preliminary Peripheral Venipuncture Culture is incubating and being continuously monitored for growth. Final report to follow. 11/17/18 20:13 Legionella Antigen - Final Urine,Clean Catch Streptococcus pneumoniae Antigen (M - Final 11/17/18 19:31 Blood Culture - Preliminary Peripheral Venipuncture Culture is incubating and being continuously monitored for growth. Final report to follow. - Clinical Findings Intake & Output: Intake & Output 11/18/18 11/19/18 11/19/18 23:59 07:59 15:59 Intake Total 535 / 3497 550 / 550 Output Total 500 / 3500 210 / 210 Balance 35 / -3 340 / 340 Weight 57 kg Consult Discharge Plan - Plan Referrals: Viral Hoffman DO [Primary Care Provider] - <Jose Resendez W - Last Filed: 11/20/18 06:38> Date of Encounter: 11/20/18 Time of Encounter: 07:00 Subjective Principal diagnosis: Hemoptysis Interval history: Sedated overnight. Family at bedside and were updated minor amount of hemoptysis during one episode of agitation. Objective PUL Vital signs: Last Vital Signs Temp 97.5 F L 11/19/18 07:43 Pulse 62 11/19/18 10:00 Resp 14 11/19/18 10:00 BP 76/57 11/19/18 10:00 Pulse Ox 99 11/19/18 10:00 GEN: Sedated on vent plan to keep deeply sedated until bronchoscopy HEENT: Endotracheal tube noted in satisfactory position Resp: Rhonchi is appreciated bilaterally Cardio: Regular rate and rhythm no audible murmur GI: Bowel sounds present abdomen is soft nontender to deep palpation Ext: No significant swelling distal pulses are intact Skin: No evidence of skin breakdown rash or purpura Neuro: Patient noted to move all extremities spontaneously without gross motor deficit Psych: is noted to have periods of intense agitation Ventilator Settings Ventilator Settings: Ventilator Settings, Last 8 Hours Ventilator Tidal Volume 420 Setting Ventilator Tidal Volume 420 Setting Ventilator Tidal Volume 420 Setting Ventilator Tidal Volume 420 Setting Ventilator Tidal Volume 420 Setting Ventilator Tidal Volume 420 Setting Ventilator Tidal Volume 420 Setting Ventilator Tidal Volume 420 Setting Ventilator Tidal Volume 420 Setting Ventilator Tidal Volume 420 Setting Ventilator Tidal Volume 420 Setting Ventilator Tidal Volume 420 Setting Ventilator Respiratory Rate 14 Setting Ventilator Respiratory Rate 14 Setting Ventilator Respiratory Rate 14 Setting Ventilator Respiratory Rate 14 Setting Ventilator Respiratory Rate 14 Setting Ventilator Respiratory Rate 14 Setting Ventilator Respiratory Rate 14 Setting Ventilator Respiratory Rate 14 Setting Ventilator Respiratory Rate 14 Setting Ventilator Respiratory Rate 14 Setting Ventilator Respiratory Rate 14 Setting Ventilator Respiratory Rate 14 Setting Actual Respiratory Rate 14 Actual Respiratory Rate 14 Actual Respiratory Rate 14 Actual Respiratory Rate 17 Actual Respiratory Rate 15 Actual Respiratory Rate 15 Actual Respiratory Rate 15 Actual Respiratory Rate 14 Actual Respiratory Rate 14 Actual Respiratory Rate 15 Actual Respiratory Rate 15 Positive End Expiratory 5 Pressure Positive End Expiratory 5 Pressure Positive End Expiratory 5 Pressure Positive End Expiratory 5 Pressure Positive End Expiratory 5 Pressure Positive End Expiratory 5 Pressure Positive End Expiratory 5 Pressure Positive End Expiratory 5 Pressure Positive End Expiratory 5 Pressure Positive End Expiratory 5 Pressure Positive End Expiratory 5 Pressure Positive End Expiratory 5 Pressure Peak Inspiratory Airway 13 Pressure Peak Inspiratory Airway 9 Pressure Peak Inspiratory Airway 12 Pressure Peak Inspiratory Airway 14 Pressure Peak Inspiratory Airway 7.8 Pressure Peak Inspiratory Airway 11 Pressure Peak Inspiratory Airway 9.8 Pressure Results - Laboratory Findings CBC and BMP: 11/19/18 13:30 11/19/18 13:30 ABG ABG pH 7.39 pH Units (7.32-7.45) 11/19/18 04:43 ABG pCO2 44 mmHg (35-45) 11/19/18 04:43 ABG pO2 303 mmHg (85-104) H 11/19/18 04:43 ABG O2 Saturation 100 % (95-98) H 11/19/18 04:43 PT/INR, D-dimer PT 16.2 Seconds (9.4-12.1) H 11/19/18 04:57 Abnormal lab findings: Abnormal lab results RBC 3.46 M/mcL (4.19-5.50) L 11/19/18 04:57 Hgb 8.9 g/dL (12.9-16.9) L 11/19/18 04:57 Hct 29.7 % (37.5-50.1) L 11/19/18 04:57 MCV 82.6 fL (83.0-100.0) L 11/17/18 19:31 MCH 25.7 pg (28.0-33.3) L 11/19/18 04:57 MCHC 30.0 g/dL (31.6-35.5) L 11/19/18 04:57 RDW 18.5 % (11.5-14.5) H 11/19/18 04:57 9.3 K/mcL (1.6-8.9) H 11/19/18 04:57 PT 16.2 Seconds (9.4-12.1) H 11/19/18 04:57 ABG pO2 303 mmHg (85-104) H 11/19/18 04:43 ABG Total CO2 28 mEq/L (20-26) H 11/19/18 04:43 ABG O2 Saturation 100 % (95-98) H 11/19/18 04:43 Sodium 128 mEq/L (136-145) L 11/17/18 19:31 Potassium 3.3 mEq/L (3.5-5.1) L 11/17/18 19:31 Chloride 93 mEq/L (98-107) L 11/17/18 19:31 Glucose 115 mg/dL (70-105) H 11/19/18 04:57 POC Glucose 107 mg/dL (70-99) H 11/19/18 00:29 265 (280-300) L 11/17/18 19:31 Calcium 8.5 mg/dL (8.6-10.3) L 11/18/18 12:29 Iron 12 mcg/dL (65-175) L 11/19/18 04:57 % Saturation 6 % (20-55) L 11/19/18 04:57 149 mg/dL (203-362) L 11/19/18 04:57 539 ng/mL (20-250) H 11/19/18 04:57 Vitamin B12 > 1500 pg/mL (250-1100) H 11/19/18 04:57 7.42 ng/mL (0.00-0.15) H 11/18/18 12:29 Ur Specific Kennard < 1.005 (1.010-1.025) L 11/17/18 20:13 Trace (Negative) H 11/17/18 20:13 57 mOsm/kg (300-1090) L 11/17/18 20:13 Fluid Appearance Hazy (Clear) A 11/18/18 10:50 Vancomycin Trough 14 mcg/mL (5-10) H 11/19/18 08:16 Crossmatch See Detail 11/17/18 20:04 - Microbiology Findings Microbiology Findings: Microbiology, Last 48 Hours 11/17/18 20:13 Urine Culture - Final Urine,Clean Catch No significant growth. 11/18/18 10:50 Respiratory Culture - Preliminary Right Lower Lobe Lung 11/17/18 19:45 Blood Culture - Preliminary Peripheral Venipuncture Culture is incubating and being continuously monitored for growth. Final report to follow. 11/17/18 20:13 Legionella Antigen - Final Urine,Clean Catch Streptococcus pneumoniae Antigen (M - Final 11/17/18 19:31 Blood Culture - Preliminary Peripheral Venipuncture Culture is incubating and being continuously monitored for growth. Final report to follow. - Diagnostic Findings Chest x-ray: report reviewed, image reviewed CT scan - chest: report reviewed, image reviewed - Clinical Findings Intake & Output: Intake & Output 11/18/18 11/19/18 11/19/18 23:59 07:59 15:59 Intake Total 535 / 3497 550 / 550 Output Total 500 / 3500 210 / 210 Balance 35 / -3 340 / 340 Weight 57 kg - Attending Attestation I examined this patient and my medical decision-making was reviewed with the Resident Physician. I agree with the documented findings, disposition and treatment plan as described except to the extent set forth below. We independently had [id number] contact with the patient Patient seen and examined at bedside Labs, radiology, chart personally reviewed. Management was reviewed during multidisciplinary critical care rounds. I spent 65 min of Critical Care time with this patient. It involved decision making of high complexity to assess, manipulate, and support vital organ system failure and/or to prevent further life threatening deterioration of the patient's condition. The time involved in the performance of separately reportable procedures was not counted toward critical care time. Impression/Recs: Unfortunate case of a 56 [id number] gentleman presenting with pneumonia COPD exacerbation and massive hemoptysis secondary to metastatic lung cancer. Patient had been hemodynamically stable overnight with some minimal vent settings he did have some bleeding noted during a coughing spell overnight but otherwise had been stable. Plan was for repeat bronchoscopy today to take a second look and see if patient was still actively bleeding and if he could be a candidate for APC at bedside. I had been having multiple conversations with the several the primary individuals involved in his care including his radiation oncologist Dr. Jimenez and his primary oncologist Dr. Koehler. I have also consul michaelle Matta in interventional radiology and the plan was after bronchoscopy to trial bronchial artery embolization to see this would be more of a at least in the short-term definitive strategies to decrease the bleeding an episode/frequency of hemoptysis. Unfortunately prior to bronchoscopy patient noted to have severe agitation and had another episode of massive hemoptysis the entire endotracheal tube was full of fresh blood and the entire ventilator circuit was clogged with blood. This led to acute hypoxemia. The endoscopy team was present and along with nursing staff and respiratory therapist patient was quickly deeply sedated and paralyzed for this and attempted bronchoscopy was made with suctioning to try to clear the endotracheal tube after suctioning there was noted to be a thick clot at the distal end of the endotracheal tube was noted fresh bleeding. This intervention did improve the patient's oxygen saturation and it was felt to be safe at this point to hold off on further bronchoscopy as dislodging of this particular clot especially in the right side was with slightly greater result in further massive hemoptysis. Anesthesia was called emergently to place a double lumen endotracheal tube but unfortunately it was noted that the left mainstem bronchus also had significant clot burden so this strategy would not be effective the double-lumen endotracheal tube had been placed and was removed and exchanged for a traditional and endotracheal tube. At this point patient had oxygen saturation in the high 80s low 90s and was hemodynamically stable on vasopressor he is also deeply sedated and paralyzed. Approximately 10-15 minutes after placement of the traditional endotracheal tube by anesthesia patient was noted to become bradycardic and lost pulse prompting ACLS initiation after several rounds of ACLS patient had ROSC. I had a ben conversation with the patient's fiance regarding his prognosis explaining that it was extremely grave and given how severe the bleeding was and felt that there was very little that could be done as I suspected this was a arterial bleed coming aortic circulation as opposed to venous circulation but regardless them options for management at this point were very limited. I said that I felt that he had a high risk of having another cardiac arrest and in fact after this conversation patient did have another cardiac arrest several cycles of CPR were performed and patient did not regain pulse however after discussion with the patient's fiance/power of trade mark attorney and his family members it was decided to transition to comfort measures given that would have been the patient's wishes in this situation where he had very limited to no possibility of making a meaningful recovery All questions were answered at bedside and emotional support was provided we also consulted cash applications analyst to be at the bedside with the family per the request. After transition to comfort measures patient quickly
[2018-11-19] MEDS: Chlorhexidine Rinse 15 ML MOUTHWASH MM SCH (08:49)
[2018-11-19] MEDS ORDERED: Pantoprazole 40 MG VIAL IVP SCH (09:00)
[2018-11-19 11:46] VITALS: BP 82/53
[2018-11-19] MEDS: Norepinephrine 4 MG in D5% in Water 250 ML IVC SCH ×2 (11:52→16:50)
[2018-11-19] MEDS ORDERED: Heparin 1,000 UNITS/500 mL 500 ML ONE (12:30)
[2018-11-19] MEDS ORDERED: 0.9 % Sodium Chloride 500 ML ONE (12:30)
--- NOTE | 2018-11-19 12:50 | Oncology Inp Progress Note ---
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 Prior treatment as listed in HPI Current therapy includes single agent Gemcitabine initiated 10/28/2018. He is s/p Cycle 1, Day 8 on 11/04/2018. Day 16 held due to thrombocytopenia/anemia. Qualifiers: Lung location: upper lobe of lung Qualified Code(s): C34.11 - Malignant neoplasm of upper lobe, right bronchus or lung (2) Hemoptysis Status: Acute Assessment and plan: Presented with report of significant amounts of hemoptysis requiring ICU admission S/P bronschopscopy today which revealed active bleeding in the RLL, epi/thrombin instilled, as well as friable endonronchial lesion in the RUL, epi/thrombin ins tilled Plan: Planned for second look bronchoscopy today followed by pulmonary artery embolization in attempts to acutely control further bleeding Unfortunately, this afternoon Mr. Carmona suffered further massive hemoptysis and despite effort to insert a double lumen endotracheal tube, unable to ventilate and decision was made to withdraw the double lumen tube. Family are at bedside and awaiting for a few more family members to arrive prior to withdrawal of care. Support provided to patients family at bedside. Oncology: Subj Interval history: Mr. Carmona is hypotensive and requiring pressor support. Remains intubated and requiring sedation although he remains agitated at times. He is preparing soon for second look bronchoscopy to assess for any areas that may be treated with APC, followed by pulmonary artery embolization with interventional radiology. Prognosis is poor. - Constitutional General appearance: thin, no febrile Exam: On mechanical ventilation requiring max sedation although remains agitated - ENT ENT exam: Present: mucous membranes moist, normal oropharynx - Respiratory Respiratory exam: Present: decreased breath sounds. Absent: respiratory distress - Cardiovascular Cardiovascular exam: Present: RRR - GI/Abdominal GI/Abdominal exam: Present: normal bowel sounds, soft - Extremities Exam Extremities exam: Present: normal inspection - Neurological Exam Neurological exam: Present: altered, no focal deficits - Psychiatric Psychiatric exam: Present: agitated - Skin Skin exam: Present: dry, normal color, warm Oncology: Obj Data - Labs CBC & Chem 7: 11/19/18 13:30 11/19/18 13:30 Consult Discharge Plan - Plan Referrals: Viral Hoffman DO [Primary Care Provider] - Inpatient Charges Provider: Dr. Dede Koehler <Masood Koehler - Last Filed: 11/19/18 21:50> Date of Encounter: 11/19/18 Oncology: Obj Data - Labs CBC & Chem 7: 11/19/18 13:30 11/19/18 13:30 Inpatient Charges Provider: Dr. Dede Koehler Follow up - Inpatient: [id number] - Attending Attestation I examined this patient and my medical decision-making was reviewed with the Advanced Practice Nurse. I agree with the documented findings, disposition and treatment plan as described except to the extent set forth below. Mr. Carmona is well known to me as he is currently under my care for metastatic squamous cell carcinoma of the right. He had recent progression of disease and was transitioned to single agent gemcitabine. Unfortunately, he developed acute onset hemoptysis this past week. He underwent bronchoscopy and attempt to try to control bleeding. I was contacted by pulmonology and there was plan for em bolization. Unfortunately, he had an acute episode of hemorrhage and acute cardiopulmonary arrest. He is currently on ventilatory support awaiting family member arrival prior to withdrawal of care. He is resting comfortably, sedated and on a ventilator. Family is at the bedside. I offered words of support and sympathy. No new recommendations from my perspective.
[2018-11-19] MEDS ORDERED: methylPREDNISolone 125 MG/2 ML VIAL ONE (12:57)
--- NOTE | 2018-11-19 13:19 | Anesthesia Procedures ---
Date of Encounter: 11/19/18 Time of Encounter: 12:00 Procedures: Anesthesia - Intubation Time out performed: Yes Sedative: Versed, Fentanyl Amount Sedative given: per ICU infusions Paralytic: Rocuronium Mg given: 50 Laryngoscope: video scope Assist device used: other (cook catheter) ET Tube Size: 8.5 Special ET Tube type: double lumen (37 L) ET tube uncuffed: Yes Tube Placement Confirmation: visualized tube passing through cords Patient tolerated procedure: well, no complications Intubation complications: none Additional comments: Called to patient bedside for massive hemoptysis and need for a double lumen endotracheal tube. Glidescope was inserted atraumatically and a cook catheter was visualized through the single lumen ETT and when minimal resistance was met the single lumen ETT was withdrawn with the cook catheter still in the trachea. With Glidescope visualization the Double lumen ETT was then advanced over the cook catheter with minimal resistance. The fiberoptic scope was then used to place the RENATA into the the appropriate position. After secured at the ame the scope was advanced through the bronchial lumen and a mass was noted obstructing the left main bronchus and there was difficulty ventilating the left lung. The tracheal lumen was free from obstruction however it was the side with hemoptysis. After discussion with Dr Resendez the decision was made to withdraw the [address] a 8.5 single lumen ETT. This was done with an exchange catheter and glidescope with minimal resistance.
[2018-11-19] MEDS ORDERED: *HR* EPINEPHrine 1 MG/10 ML SYRINGE ONE (13:27)
[2018-11-19 13:59] LABS: Eosinophils % 0.1 %; Hemoglobin 8.4 g/dL (12.9-16.9); Red Cell Distribution Width 18.7 % (11.5-14.5)
[2018-11-19 14:01] LABS: Basophils # 0.1 K/mcL (0.0-0.2); Basophils % 0.6 %; Hematocrit 29.7 % (37.5-50.1); Immature Granulocytes % 7.9 % (0-4); Lymphocytes # 4.2 K/mcL (0.6-4.6); Lymphocytes % 17.6 %; Mean Corpuscular HGB Conc 28.3 g/dL (31.6-35.5); Mean Platelet Volume 10.7 fL (9.4-12.4); Monocytes # 1.3 K/mcL (0.0-1.3); Monocytes % 5.3 %; Neutrophils # 16.2 K/mcL (1.6-8.9); Nucleated Red Blood Cells 0.6 /100 WBC (0); Platelet Count 314 K/mcL (140-400); Red Blood Count 3.23 M/mcL (4.19-5.50); Segmented Neutrophils % 68.5 %
[2018-11-19 14:02] LABS: VBG HCO3 23 mEq/L (21-27); VBG Ionized Calcium 1.53 mmol/L (1.15-1.35); VBG PCO2 76 mmHg (41-51); VBG PH 7.08 pH Units (7.32-7.42); VBG PO2 162 mmHg (25-50)
[2018-11-19 14:16] LABS: BUN/Creatinine Ratio 18 (6-26); Blood Urea Nitrogen 16 mg/dL (6-20); Calcium 11.6 mg/dL (8.6-10.3); Carbon Dioxide 26 mEq/L (23-29); Chloride 103 mEq/L (98-107); Glucose 260 mg/dL (70-105); Osmolality,Calculated 292 (280-300); Potassium 6.3 mEq/L (3.5-5.1); Sodium 136 mEq/L (136-145); Troponin I 0.07 ng/mL (< 0.04); eGFR For Non-African Americans > 60 (> 60)
[2018-11-19] MEDS ORDERED: *HR* Rocuronium Bromide 100 MG/10 ML VIAL IVC ONE (17:29)
[2018-11-19] MEDS ORDERED: Aminoglycoside Consult 1 EACH MC ONE (17:29)
[2018-11-19] MEDS ORDERED: methylPREDNISolone 125 MG/2 ML VIAL IVP ONE (18:06)
--- NOTE | 2018-11-19 18:08 | Death Note ---
<Alexandria Mcknight - Last Filed: 11/19/18 18:39> Discharge Sum: Summary - Date and Time Date of admission: 11/18/18 01:56 Date of : 11/19/18 Time of : 17:20 - Summary Details: Mr. Carmona is a 53-year-old male with past medical history of squamous cell lung cancer diagnosed on 01/2016, was on chemotherapy with [facility] on Gemcitabine. He had presented to the ED on the evening 11/18/18 complaining of hemoptysis ongoing for 5 days prior to presentation. The day of presentation he reported worsening with cupful of hemoptysis at home. On the day of admission he had no further episodes of blood-tinged sputum overnight. He also reported fever of 103.5 a day prior to admission as well as productive cough. He was subsequently started on broad-spectrum antibiotics including Zithromax, vancomycin and Zosyn. The next morning he underwent bronchoscopy with attempt of instilling the active bleeding with epinephrine and thrombin. Sample of bronchial lavage was also sent to lab for analysis. Due to extent of active bleeding he remained intubated with hopes of bronchoscopy next morning to embolize active site of bleeding. On 11/19/18 repeat bronchoscopy was attempted and he was noted to have massive hemoptysis resulting in filling of the endotracheal tube with blood. The procedure was halted due to worsening hypoxia and hypotension. His respiratory status improved after the procedure was halted. At 1314 he started developing bradycardia with PEA. CODE BLUE was called and he underwent ACLS protocol. His pulse returned after 2 rounds of epinephrine. Additionally he received magnesium as well as bicarbonate. His norepinephrine drip was restarted. Stat labs were ordered and collected. At 1347 he started developing bradycardia and had another arrest with PEA. CODE BLUE was again called and he received 1 mg of epinephrine. There was a discussion with his POA who decided to halt the ACL is protocol and change the CODE STATUS to DNR CCA. He remained on norepinephrine drip. 1711 family requested to change the CODE STATUS to DNR CC, subsequently he was extubated. At 1720 he started developing bradycardia and had subsequent PEA. Time of recorded at 1720. - Additional Data Confirmation of as documented by pronouncing clinician: no pulse, no respirations, no heart sounds Family: at bedside Additional persons at bedside: marion Attending/PCP notified?: Yes Attending physician: Jennifer Tsang MD Was code activated?: Yes Discharge Sum: Diag - PCOD Probable Cause of : Cardiac arrest Discharge Sum: Prov - Provider Primary care physician: Viral Hoffman DO Admitting clinician: eJnnifer Tsang Attending physician on admission: Jose Resendez Consults: 11/17/18 22:40 Consult to Pulmonology [CONS] Routine Consulting Provider: [facility] [place] Reason for Consult: lung cancer, PNA Call Completed: No 11/18/18 00:36 Consult to Oncology Hematology [CONS] Routine Consulting Provider: Tennille Freedman Reason for Consult: hemoptysis, lung cancer, known to you Call Completed: No 11/18/18 00:37 Consult to Nutrition [CONS] Routine Comment: Consulting Provider: NUTRITION Reason for Dietary Consult: PO Supplementation Pronouncing clinician: Nilam Strong <Jose Resendez - Last Filed: 11/20/18 06:35> Discharge Sum: Summary - Date and Time Date of admission: 11/18/18 01:56 - Additional Data Attending physician: Jennifer Tsang MD Discharge Sum: Prov - Provider Primary care physician: Viral Hoffman DO Consults: 11/17/18 22:40 Consult to Pulmonology [CONS] Routine Consulting Provider: [facility] [place] Reason for Consult: lung cancer, PNA Call Completed: No 11/18/18 00:36 Consult to Oncology Hematology [CONS] Routine Consulting Provider: Tennille Freedman Reason for Consult: hemoptysis, lung cancer, known to you Call Completed: No 11/18/18 00:37 Consult to Nutrition [CONS] Routine Comment: Consulting Provider: NUTRITION Reason for Dietary Consult: PO Supplementation - Attending Attestation I examined this patient and my medical decision-making was reviewed with the Resident Physician. I agree with the documented findings, disposition and treatment plan as described except to the extent set forth below. We independently had [id number] contact with the patient
== END 2018-11-19 17:30 | disposition expired | DRG 208 ==
LOC: EMEROOARM 18:57 → 3ANU 18:57 → 2ANU 22:36 → ICNU 23:53
PROVIDERS: ADMIT Internal Medicine; ATTEND Internal Medicine
PROC: ENDOBRF (2018-11-19 13:00)